=== PATIENT | male | born 1955 | race Caucasian/White ===

== ENCOUNTER 2022-03-27 12:17 | Inpatient (IN) | payer MEDICARE, SELFPAY ==
[2022-03-27] VITALS (9 sets, daily range): BP systolic 128–146; BP diastolic 50–73; PULSE 55–96; RESP 16–25; TEMP 37.7–37.8; O2SAT 92–96; BMI 38.6; BMI 36.9
--- NOTE | 2022-03-27 12:36 | W.ED.WEAKNES ---
HPI - Weakness General: Chief complaint: Weakness Stated complaint: FEVER/ NAUSEA/ ABDOMINAL PAIN Time Seen by Provider: 03/27/22 12:19 History of Present Illness: Associated symptoms: Denies chest pain, chills, dysuria, easy bruising, fever(s), nausea or vomiting Review of Systems Const: Denies: fever(s) or chills Eyes: Denies: change in vision ENMT: Denies: mouth pain Card: Denies: chest pain or palpitations Resp: Denies: dyspnea or non-productive cough GI: Denies: abdominal pain, nausea, vomiting or diarrhea : Denies: dysuria Musc: Denies: extremity pain Skin/Breast: Denies: rash or new lesions Neuro: Denies: weakness in extremities Psych: Reports: other (Normal mood) Pete/Lymph: Denies: easy bruising Physical Exam Const: COMMON NORMALS: alert HENMT: COMMON NORMALS: atraumatic HEAD & SCALP: atraumatic MOUTH: moist mucous membranes not abnormal Eye: COMMON NORMALS: EOMs intact bilaterally and conjunctivae normal CONJUNCTIVA: Yes conjunctivae normal Neck/C-Spine: COMMON NORMALS: full ROM and supple Resp: COMMON NORMALS: normal respiratory effort and clear to auscultation bilaterally AUSCULTATION: clear to auscultation bilaterally Cardio: COMMON NORMALS: regular rate RATE: regular rate GI: COMMON NORMALS: Soft to palpation and non-tender PALPATION: Yes Soft to palpation Extremity: COMMON NORMALS: full ROM Neuro: SENSORIUM/ORIENTATION: Yes alert MOTOR EXAM: No Abnormal motor strength present and Other motor observations present (no focal motor deficits) Psych: COMMON NORMALS: speech normal SPEECH: Yes normal speech MOOD & AFFECT: Yes euthymic mood Course Vital Signs: Vital signs: Vital Signs Temperature 100.1 F H 03/27/22 12:24 Pulse Rate 77 03/27/22 12:24 Respiratory Rate 22 H 03/27/22 12:24 Blood Pressure 137/68 03/27/22 12:24 Pulse Oximetry 92 03/27/22 12:24 Oxygen Delivery Me thod 03/27/22 12:24 Discharge Plan Discharge Condition: Stable Coding Level of Care Code ED Employer Relations Representative for g Fwd Exam Comprehensive
--- NOTE | 2022-03-27 12:46 | ED_ITS ---
HPI - General Adult General: Chief complaint: Weakness Stated complaint: FEVER/ NAUSEA/ ABDOMINAL PAIN Time Seen by Provider: 03/27/22 12:19 History of Present Illness: Patient is a 67-year-old male with no significant past medical history presenting to the emergency room with complaint of generalized weakness, chills and fatigue. Patient tells me that he has been having symptoms for the last 2 days. Patient's was sick at home with diarrhea. Patient denies any cough, sore throat, runny nose. Patient does report body aches and generalized weakness and fatigue. Patient has been unable to get up out of bed. Patient also complained of lower abdominal pain earlier. Denies any dysuria/polyuria or hematuria. Patient has no complaints of diarrhea, melena hematochezia. Patient denies any nausea or vomiting but reports decreased p.o. intake. No complaints of chest pain or shortness of breath. Onset: 2 days ago Duration:2 days Location:home Severity:moderate Associated symptoms: Reports malaise; Deny chest pain, dyspnea, nausea, rash, palpitations or vomiting Review of Systems Const: Reports: fever(s), chills, body aches, fatigue, malaise and other (+ Generalized weakness) Eyes: Denies: change in vision ENMT: Denies: mouth pain Card: Denies: chest pain or palpitations Resp: Denies: dyspnea or non-productive cough GI: Reports: abdominal pain (+lower abd pain) and other (+decreased po intake); Denies: nausea, vomiting or diarrhea : Denies: dysuria Musc: Denies: extremity pain Skin/Breast: Denies: rash or new lesions Neuro: Denies: weakness in extremities Psych: Reports: other (Normal mood) Pete/Lymph: Denies: easy bruising PFS ED PFSH: Medical History (Updated 04/02/22 @ 00:01 by ) Afib Cellulitis COVID Diabetes Elevated troponin Generalized weakness Iliac lymphadenopathy Intertrigo Malaise No pertinent past medical history NSTEMI (non-ST elevated myocardial infarction) Second degree AV block, Mobitz type II Surgical History (Updated 03/27/22 @ 18:08 by Kavya Cochran MD) History of open heart surgery S/P CABG x 5 Family History Other Diabetes Social History Smoking and tobacco status: never smoked Alcohol intake: never Physical Exam Const: COMMON NORMALS: alert HENMT: COMMON NORMALS: atraumatic HEAD & SCALP: atraumatic MOUTH: moist mucous membranes abnormal Eye: COMMON NORMALS: EOMs intact bilaterally and conjunctivae normal CONJUNCTIVA: Yes conjunctivae normal Neck/C-Spine: COMMON NORMALS: full ROM and supple Resp: COMMON NORMALS: normal respiratory effort and clear to auscultation bilaterally AUSCULTATION: clear to auscultation bilaterally Cardio: COMMON NORMALS: regular rate RATE: regular rate GI: COMMON NORMALS: Soft to palpation and non-tender PALPATION: Yes Soft to palpation OTHER: No focal TTP. NO guarding rebound, guarding, rigidity. No CVA tenderness to percussion. Neg Colin/Neg McBurney's point tenderness, no suprabupic tenderness to palpation. : OTHER: Normal external genitalia, Testicles non-tender b/l, no erythema. Extremity: COMMON NORMALS: full ROM Neuro: SENSORIUM/ORIENTATION: Yes alert MOTOR EXAM: No Abnormal motor strength present and Other motor observations present (no focal motor deficits) Psych: COMMON NORMALS: speech normal SPEECH: Yes normal speech MOOD & AFFECT: Yes euthymic mood Course Vital Signs: Vital signs: Vital Signs Temperature 98.0 F 04/01/22 11:23 Pulse Rate 42 L 04/01/22 11:23 Respiratory Rate 18 04/01/22 11:23 Blood Pressure 172/81 04/01/22 11:23 Pulse Oximetry 96 04/01/22 11:23 Oxygen Delivery [place] thod 04/01/22 08:00 Oxygen Flow Rate 0 03/30/22 10:37 Fraction of Inspir ed Oxygen 2 03/27/22 20:44 MDM - General Adult Medical Decision Making 67-year-old male presenting to the emergency room with nausea, malaise, generalized weakness, chills at home for the last 2 days. On exam, patient is febrile to 100.6 degrees. Patient appears to be dry. No focal abdominal tenderness to palpation. Patient requires 2 L oxygen in triage however is doing okay with oxygen in the ER. Lungs appear to be clear bilaterally. Patient is COVID-positive. Patient received Tylenol and IVF. Creatinine within normal limit. CT on pelvis showed bilateral inguinal lymph nodes. exam is unremark able. Patient has a troponin of 111 today. Patient received ASA, remdesivir, Decadron, and Lovenox. Disposition: admission Lab Data : 04/01/22 07:35 04/01/22 07:35 Radiology Impressions Abdomen/Pelvis CT 03/27/22 13:23 IMPRESSION: 1. Fatty enlarged liver. 2. Cholelithiasis. 3. Bilateral subcentimeter iliac chain lymph nodes however, they are enlarged left groin lymph nodes with surrounding inflammatory changes. Chest CTA 03/27/22 15:05 IMPRESSION: 1. Negative for pulmonary embolus. 2. Cardiomegaly. 3. Sternotomy wires. 4. Emphysematous changes. 5. Bilateral dependent atelectasis versus minimal infiltrate. 6. Coronary artery atherosclerotic calcifications. 7. Scattered prominent subcentimeter short axis mediastinal lymph nodes, nonspecific. 8. Cholelithiasis. Ankle X-Ray 03/28/22 12:45 Impression: Negative left ankle. Lower Extremity CT 03/29/22 13:39 IMPRESSION: 1. Diffuse subcutaneous edema, greatest in the region of the ankle and foot without focal fluid collection, nonspecific. 2. Calcified heel spur. 3. Scattered vascular calcifications. 4. Proximal medial collateral ligament chronic appearing calcification. Laboratory Results WBC 19.6 10^3/uL (4.0-10.0) H 03/27/22 13:04 RBC 4.85 10^6/uL (4.1-5.3) 03/27/22 13:04 Hgb 14.4 g/dL (11.7-16.6) 03/27/22 13:04 Hct 45.1 % (42.0-52.0) 03/27/22 13:04 MCV 93.0 fl (80-94) 03/27/22 13:04 MCH 29.7 pg (28.0-34.0) 03/27/22 13:04 MCHC 31.9 g/dL (30.0-36.0) 03/27/22 13:04 RDW 13.7 % (12.1-15.1) 03/27/22 13:04 Plt Count 158 10^3/cmm (130-400) 03/27/22 13:04 MPV 12.3 fL (7.4-10.4) H 03/27/22 13:04 Neut % (Auto) 89.3 % 03/27/22 13:04 Lymph % (Auto) 5.3 % 03/27/22 13:04 [place] % (Auto) 4.1 % 03/27/22 13:04 Eos % (Auto) 0.0 % 03/27/22 13:04 Baso % (Auto) 0.3 % 03/27/22 13:04 Neut # (Auto) 17.49 10^3/uL (1.8-7.7) H 03/27/22 13:04 Lymph # (Auto) 1.0 10^3/uL (0.8-4.8) 03/27/22 13:04 [place] # (Auto) 0.8 10^3/uL (0.2-0.9) 03/27/22 13:04 Eos # (Auto) 0.0 10^3/uL (0.0-0.8) 03/27/22 13:04 Baso # (Auto) 0.1 10^3/uL (0.0-0.1) 03/27/22 13:04 Nucleated RBC % (auto) 0 % 03/27/22 13:04 Nucleated RBCs # 0.0 /100WBC 03/27/22 13:04 Sodium 132 mmol/L (136-145) L 03/27/22 13:04 Potassium 3.8 mmol/L (3.5-5.1) 03/27/22 13:04 Chloride 95 mmol/L (98-107) L 03/27/22 13:04 Carbon Dioxide 20 mmol/L (22-29) L 03/27/22 13:04 Anion Gap 20.8 (5-19) H 03/27/22 13:04 BUN 13 mg/dL (8-23) 03/27/22 13:04 Creatinine 1.1 mg/dL (0.7-1.2) 03/27/22 13:04 GFR Calculation 66.6 mL/min (90-130) L 03/27/22 13:04 Glucose 260 mg/dL (65-115) H 03/27/22 13:04 Estimat Average Glucose 229 03/27/22 13:04 Hemoglobin A1c 9.6 % (4.0-6.0) H 03/27/22 13:04 Calculated Osmolality 283 mOsm/kg (285-295) L 03/27/22 13:04 Calcium 8.6 mg/dL (8.5-10.5) 03/27/22 13:04 Total Bilirubin 0.8 mg/dL (0.15-1.2) 03/27/22 13:04 AST 25 U/L (0-40) 03/27/22 13:04 ALT 18 U/L (0-41) 03/27/22 13:04 Alkaline Phosphatase 56 U/L (40-130) 03/27/22 13:04 Troponin T Baseline 111 ng/L (0-15) H* 03/27/22 13:04 Troponin T 120 Minute 101.3 ng/L (0-15) H 03/27/22 14:43 Delta Troponin T -9.7 ABS# (0-10) L 03/27/22 14:43 Total Protein 7.1 g/dL (6.6-8.7) 03/27/22 13:04 Albumin 3.2 g/dL (3.5-5.2) L 03/27/22 13:04 Globulin 3.9 g/dL (1.3-4.6) 03/27/22 13:04 Lipase 13 U/L (13-60) 03/27/22 13:04 Tumor Marker AFP 0.9 ng/mL (0-8.3) 03/27/22 13:04 Prostate Specific Ag 0.775 ng/mL (0-4) 03/27/22 13:04 Procalcitonin 2.39 ng/mL (0-0.5) H 03/27/22 13:04 Nasal Influ A H1 2009 PCR Not detected (NOT DETECT) 03/27/22 13:10 Coronavirus 229E (PCR) Not detected (NOT DETECT) 03/27/22 13:10 Influenza A (H1) PCR Not detected (NOT DETECT) 03/27/22 13:10 Influenza A (H3) PCR Not detected (NOT DETECT) 03/27/22 13:10 Influenza Type A (PCR) Not detected (NOT DETECT) 03/27/22 13:10 Influenza Type B (PCR) Not detected (NOT DETECT) 03/27/22 13:10 SARS-CoV-2 (PCR) Detected (NOT DETECT) A 03/27/22 13:10 Imaging Data Other Imaging: Radiologist's impression: [address] [place] [address] CT Scan Report Signed Patient: Jorge A Pond Unit #: [id number] : 1955 Age/Sex: 67 / M ADM Date: 03/27/22 Loc: ER Room/Bed: Attending Dr: Ordering Provider/Ordering MD: Mary Ellen Herzog MD Date of Service: 03/27/22 Procedure(s): CT abdomen pelvis w con* [id number] Accession Number(s): [id number] Report Number: [id number] PROCEDURE INFORMATION: Exam: CT Abdomen And Pelvis With Contrast Exam date and time: 03/27/2022 2:07 PM Age: 67 years old Clinical indication: Abdominal pain; Additional info: Lower abd pain TECHNIQUE: Imaging protocol: Computed tomography of the abdomen and pelvis with contrast. Contrast material: OMNI 350; Contrast volume: 80 ml; Contrast route: INTRAVENOUS (IV);? COMPARISON: No relevant prior studies available. RADIATION DOSE METRICS: Total DLP (mGy-cm): 1243.03 FINDINGS: Lungs: Mild atelectasis seen involving both lung bases. Liver: Moderately fatty enlarged liver 215 mm. Gallbladder and bile ducts: Cholelithiasis. Pancreas: Normal. No ductal dilation. Spleen: Normal. No splenomegaly. Adrenal glands: Normal. No mass. Kidneys and ureters: Normal. No hydronephrosis. Stomach and bowel: No obstruction. No mucosal thickening.? Scattered diverticula. No evidence of acute diverticulitis. Appendix: Unremarkable visualized right lower quadrant appendix. Intraperitoneal space: Unremarkable. No free air. No significant fluid collection. Vasculature: Vascular calcifications. Lymph nodes: Nonenlarged iliac chain lymph nodes are identified bilaterally. Urinary bladder: Unremarkable as visualized. Reproductive: Unremarkable as visualized. Bones/joints: Unremarkable. No acute fracture. Soft tissues: Inflammatory changes in the left groin with numerous lymph nodes. Some of these lymph nodes are enlarged over 13 mm of unknown etiology.? Surgical clips in the left groin questionably from a prior hernia repair which needs clinical correlation. CT/CT abdomen pelvis w con* [id number] IMPRESSION: 1. Fatty enlarged liver. 2. Cholelithiasis. 3. Bilateral subcentimeter iliac chain lymph nodes however, they are enlarged left groin lymph nodes with surrounding inflammatory changes. ? Dictated By: Vin Tucker MD Signed By: Vin Tucker MD Signed Date/Time: 03/27/22 1439 DD/ 1407 Discharge Plan Discharge Patient Disposition: Home Clinical Impression: Generalized weakness, Malaise, COVID, Elevated troponin Condition: Stable Discharge Orders: Discharge Order (Routine); Ordered 04/01/22 Ordered By: Kavya Cochran Discharge Diet: Advance as tolerated Discharge Activity: Increase activity as tolerated Coding Level of Care Code ED Belt And Link Assembly Supervisor for Chg Fwd Exam Comprehensive
[2022-03-27] MEDS: acetaminophen 500 mg Tablet 1000 MG PO (13:03)
[2022-03-27] MEDS: sodium chloride 0.9% 1,000 ML 999 ML IV ×2 (13:03→14:49)
[2022-03-27 13:19] LABS: Basophils # 0.1 10^3/uL (0.0-0.1); Basophils % 0.3 %; Hematocrit 45.1 % (42.0-52.0); Hemoglobin 14.4 g/dL (11.7-16.6); Lymphocytes % 5.3 %; Mean Corpuscular HGB Conc 31.9 g/dL (30.0-36.0); Mean Corpuscular Hemoglobin 29.7 pg (28.0-34.0); Mean Platelet Volume 12.3 fL (7.4-10.4); Monocytes # 0.8 10^3/uL (0.2-0.9); Monocytes % 4.1 %; Neutrophils # 17.49 10^3/uL (1.8-7.7); Neutrophils % 89.3 %; Nucleated Red Blood Cells % 0 %; Platelet Count 158 10^3/cmm (130-400); Red Blood Count 4.85 10^6/uL (4.1-5.3); Red Cell Distribution Width 13.7 % (12.1-15.1); White Blood Count 19.6 10^3/uL (4.0-10.0)
--- NOTE | 2022-03-27 13:23 | CTR_ITS ---
PROCEDURE INFORMATION: Exam: CT Abdomen And Pelvis With Contrast Exam date and time: 03/27/2022 2:07 PM Age: 67 years old Clinical indication: Abdominal pain; Additional info: Lower abd pain TECHNIQUE: Imaging protocol: Computed tomography of the abdomen and pelvis with contrast. Contrast material: OMNI 350; Contrast volume: 80 ml; Contrast route: INTRAVENOUS (IV); COMPARISON: No relevant prior studies available. RADIATION DOSE METRICS: Total DLP (mGy-cm): 1243.03 FINDINGS: Lungs: Mild atelectasis seen involving both lung bases. Liver: Moderately fatty enlarged liver 215 mm. Gallbladder and bile ducts: Cholelithiasis. Pancreas: Normal. No ductal dilation. Spleen: Normal. No splenomegaly. Adrenal glands: Normal. No mass. Kidneys and ureters: Normal. No hydronephrosis. Stomach and bowel: No obstruction. No mucosal thickening. Scattered diverticula. No evidence of acute diverticulitis. Appendix: Unremarkable visualized right lower quadrant appendix. Intraperitoneal space: Unremarkable. No free air. No significant fluid collection. Vasculature: Vascular calcifications. Lymph nodes: Nonenlarged iliac chain lymph nodes are identified bilaterally. Urinary bladder: Unremarkable as visualized. Reproductive: Unremarkable as visualized. Bones/joints: Unremarkable. No acute fracture. Soft tissues: Inflammatory changes in the left groin with numerous lymph nodes. Some of these lymph nodes are enlarged over 13 mm of unknown etiology. Surgical clips in the left groin questionably from a prior hernia repair which needs clinical correlation. CT/CT abdomen pelvis w con* [id number] IMPRESSION: 1. Fatty enlarged liver. 2. Cholelithiasis. 3. Bilateral subcentimeter iliac chain lymph nodes however, they are enlarged left groin lymph nodes with surrounding inflammatory changes.
--- NOTE | 2022-03-27 13:29 | ECG_ITS ---
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 Measurements Intervals [place] Rate: 74 P: 47 PA: 185 QRS: -64 QRSD: 157 T: 258 QT: 392 QTc: 437 Interpretive Statements SINUS RHYTHM RIGHT BUNDLE BRANCH BLOCK [120+ ms QRS DURATION, UPRIGHT V1, 40+ ms S IN I/aVL/V4/V5/V6] LEFT ANTERIOR FASCICULAR BLOCK [QRS AXIS <= -45, QR IN I, RS IN II] MODERATE T-WAVE ABNORMALITY, CONSIDER LATERAL ISCHEMIA [-0.1+ mV T-WAVE IN I/aVL/V5/V6] MODERATE T-WAVE ABNORMALITY, CONSIDER INFERIOR ISCHEMIA [-0.1+ mV T-WAVE IN II/aVF] No previous ECG available for comparison Electronically Signed On 03-27-2022 22:44:33 CDT by Tracy Fields M.D. [id number]
[2022-03-27 13:39] LABS: Alanine Aminotransferase 18 U/L (0-41); Albumin Level 3.2 g/dL (3.5-5.2); Alkaline Phosphatase 56 U/L (40-130); Anion Gap 20.8 (5-19); Aspartate Amino Transferase 25 U/L (0-40); Blood Urea Nitrogen 13 mg/dL (8-23); Calcium 8.6 mg/dL (8.5-10.5); Carbon Dioxide 20 mmol/L (22-29); Chloride 95 mmol/L (98-107); Globulin 3.9 g/dL (1.3-4.6); Glomerular Filtration Rate 66.6 mL/min (90-130); Glucose 260 mg/dL (65-115); Lipase 13 U/L (13-60); Osmolality Calculated 283 mOsm/kg (285-295); Potassium 3.8 mmol/L (3.5-5.1); Sodium 132 mmol/L (136-145); Total Bilirubin 0.8 mg/dL (0.15-1.2); Total Protein 7.1 g/dL (6.6-8.7)
[2022-03-27 13:56] LABS: Troponin(5th) Baseline 111 ng/L (0-15)
[2022-03-27] MEDS: iohexol 350 mg/mL 100 mL Btl IV ×2 (14:10→15:26)
--- NOTE | 2022-03-27 14:11 | PC.PHAR ---
pt had medications with him. pt states he takes Metformin 500mg prn withh 1000mg if blood sugar tests high
[2022-03-27] MEDS: aspirin 325 mg Tablet PO (14:28)
[2022-03-27 15:00] LABS: Adenovirus Not Detected (NOT DETECT); Chlamydia Pneumoniae Not Detected (NOT DETECT); Coronavirus 229E,HKU1,NL63,OC4 Not Detected (NOT DETECT); Human Metapneumovirus Not Detected (NOT DETECT); Human Rhinovirus/Enterovirus Not Detected (NOT DETECT); Influenza A Not Detected (NOT DETECT); Influenza A H1 Not Detected (NOT DETECT); Influenza A H1-2009 Not Detected (NOT DETECT); Influenza A H3 Not Detected (NOT DETECT); Influenza B Not Detected (NOT DETECT); Mycoplasma Pneumoniae Not Detected (NOT DETECT); Parainfluenza Virus Type 1 Not Detected (NOT DETECT); Parainfluenza Virus Type 2 Not Detected (NOT DETECT); Parainfluenza Virus Type 3 Not Detected (NOT DETECT); Parainfluenza Virus Type 4 Not Detected (NOT DETECT); Respiratory Syncytial Virus A Not Detected (NOT DETECT); Respiratory Syncytial Virus B Not Detected (NOT DETECT); SARS-COV-2 Detected (NOT DETECT)
--- NOTE | 2022-03-27 15:05 | CTR_ITS ---
PROCEDURE INFORMATION: Exam: CTA Chest With Contrast Exam date and time: 03/27/2022 3:22 PM Age: 67 years old Clinical indication: Abnormal findings; Abnormal diagnostic tests; Other: Troponin elevation; Prior surgery; Surgery type: Bypass; Additional info: Covid, troponin elevation TECHNIQUE: Imaging protocol: Computed tomographic angiography of the chest with contrast. 3D rendering (Not supervised by radiologist): MIP and/or 3D reconstructed images were created by the technologist. Radiation optimization: All CT scans at this facility use at least one of these dose optimization techniques: automated exposure control; mA and/or kV adjustment per patient size (includes targeted exams where dose is matched to clinical indication); or iterative reconstruction. Contrast material: OMNI 350; Contrast volume: 95 ml; Contrast route: INTRAVENOUS (IV); COMPARISON: CT abdomen pelvis w con* [id number] 03/27/2022 2:07 PM RADIATION DOSE METRICS: Total DLP (mGy-cm): 536.17 FINDINGS: Pulmonary arteries: Normal. No pulmonary emboli. Aorta: Unremarkable. No aortic aneurysm. No aortic dissection. Lungs: Emphysematous changes. Bilateral dependent atelectasis versus minimal infiltrate. Pleural spaces: Unremarkable. No pneumothorax. No pleural effusion. Heart: Cardiomegaly. Coronary artery atherosclerotic calcifications. Lymph nodes: Scattered prominent subcentimeter short axis mediastinal lymph nodes. Gallbladder and bile ducts: Cholelithiasis. Bones/joints: Sternotomy wires. Soft tissues: Unremarkable. CT/CT angio chest PE protcl [id number] IMPRESSION: 1. Negative for pulmonary embolus. 2. Cardiomegaly. 3. Sternotomy wires. 4. Emphysematous changes. 5. Bilateral dependent atelectasis versus minimal infiltrate. 6. Coronary artery atherosclerotic calcifications. 7. Scattered prominent subcentimeter short axis mediastinal lymph nodes, nonspecific. 8. Cholelithiasis.
[2022-03-27 15:19] LABS: Troponin 5 2HR 101.3 ng/L (0-15); Troponin 5 2HR Delta -9.7 ABS# (0-10)
[2022-03-27 15:21] LABS: Influenza A Not Detected (NOT DETECT); Influenza A H1 Not Detected (NOT DETECT); Influenza A H1-2009 Not Detected (NOT DETECT); Influenza A H3 Not Detected (NOT DETECT); Influenza B Not Detected (NOT DETECT); Results from Genmark
--- NOTE | 2022-03-27 15:26 | P.HP_ITS ---
Providers/Chief Complaint Chief Complaint: FEVER/ NAUSEA/ ABDOMINAL PAIN History of Present Illness Jorge A Pond is a 67 year old male who has hx of afib, non insulin dependent DM, coming for CC of Genralized weakness. His is sick and experiencing diarrhea for last few days. Mr Pond is feeling extremly lethargic and weak. Patient is stating that his symptoms started just 2 days ago with generalized fatigue and fever. He has not noticed any chest pain, diarrhea however he is endorsing nausea. No recent syncopal events. He is vaccinated for COVID-19. In the ER he is requiring 2 L of oxygen Low-grade fever He has been given loading dose of remdesivir and Decadron Review of Systems Const: Reports: fever(s) and chills Eyes: Denies: change in vision ENMT: Denies: throat pain Card: Denies: chest pain Resp: Reports: dyspnea GI: Reports: nausea; Denies: abdominal pain : Denies: flank pain Musc: Denies: neck pain Skin/Breast: Denies: rash Neuro: Denies: headache(s) Psych: Reports: anxiety Endo: Denies: polyuria Pete/Lymph: Denies: easy bruising All/Imm: Denies: urticaria Medications/Allergies Home Medications Medication Instructions Recorded Confirmed Last Taken Type acetaminophen 325 mg capsule 325 mg PO QID PRN Pain 03/27/22 03/27/22 Unknown History (Tylenol) acetaminophen 500 mg tablet 500 mg PO Q6H PRN pain 5 days #20 03/27/22 Unknown Rx tabs albuterol sulfate 90 mcg/actuation 2 puff inhalation 6XD PRN 03/27/22 03/27/22 03/27/22 History aerosol inhaler Shortness Of Breath apixaban 5 mg tablet (Eliquis) 2.5 mg PO BID 03/27/22 03/27/22 03/27/22 History atorvastatin 20 mg tablet 20 mg PO BEDTIME 03/27/22 03/27/22 03/27/22 History carvedilol 25 mg tablet 25 mg PO BID 03/27/22 03/27/22 03/27/22 History glipizide 5 mg tablet 5 mg PO BID 03/27/22 03/27/22 03/27/22 History lisinopril 30 mg tablet 30 mg PO DAILY 08/03/27/22 03/27/22 History metformin 1,000 mg tablet 1,000 mg PO BID 03/27/22 03/27/22 03/27/22 History metformin 500 mg tablet 500 mg PO DAILY PRN Hypoglycemia 03/27/22 03/27/22 Unknown History Allergies Allergy/AdvReac Type Severity Reaction Status Date / Time No Known Allergies Allergy Verified 03/27/22 14:10 PFSH Acute PFSH: Medical History (Updated 03/27/22 @ 18:08 by Kavya Cochran MD) Afib Diabetes No pertinent past medical history Surgical History (Updated 03/27/22 @ 18:08 by Kavya Cochran MD) History of open heart surgery S/P CABG x 5 Family History Other Diabetes Social History Smoking and tobacco status: never smoked Alcohol intake: never Substance/Drug Use: never Vitals/I&O/Wt Last Vital Signs Temp 99.8 F H 03/27/22 14:51 Pulse 68 03/27/22 14:51 Resp 20 H 03/27/22 14:51 BP 136/64 03/27/22 14:51 Pulse Ox 92 03/27/22 14:51 O2 Del Method 03/27/22 14:51 O2 Flow Rate 2 03/27/22 14:51 03/27/22 03/27/22 03/27/22 06:59 14:59 22:59 Intake Total 1000 / 1000 Balance 1000 / 1000 Weight last 48 hrs Weight 129.274 kg Physical Exam Narrative: pleasant male on 2 L NC No chest pain EOMI PERRLA ABD soft non tender No skin findings S1S2 euovolemic Groin with intertrigo No signs of Selma's gangrene or nonpurulent cellulitis Data : 03/27/22 13:04 03/27/22 13:04 A&P Assessment and plan (1) Generalized weakness: Status: Acute (2) Malaise: Status: Acute (3) COVID: Status: Acute (4) Elevated troponin: Status: Acute (5) Iliac lymphadenopathy: Status: Acute Plan COVID 19 acute hypoxia R/o PE CTA chest Star decadron and remdesevir On 2L NC Resp to asses and treat Duoneb Myocarditis? Troponin elevation on therapeutic lovenox now cheheck Echo no active chest pain Dimer Intertrigo of groin Nystatin powder CABG x5 2-1/2 years ago No active chest pain Significant troponin leak Start NSTEMI protocol We will follow-up with echo to see wall motion abnormality Full dose Lovenox Hold Eliquis A. 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
[2022-03-27] MEDS: remdesivir 200 MG in sodium chloride 0.9% (100 ml) 60 ML 100 MG IV (15:55)
[2022-03-27] MEDS: dexamethasone 10 mg/mL INJ 6 MG IVP (16:00)
[2022-03-27] MEDS: enoxaparin 120 mg/0.8 mL Syringe SUBCUT (16:00)
--- NOTE | 2022-03-27 16:04 | ECG_ITS ---
[facility] Test Date: 2022-03-27 Pat Name: Jorge A Pond Department: Room: Gender: Male Agency Sales Representative: : 1955 Requested By: Mary Ellen Herzog Order Number: [id number] Olya MD: Tracy Fields M.D. Measurements Intervals [place] Rate: 55 P: 40 [place]: 206 QRS: -57 QRSD: 165 T: -83 QT: 505 QTc: 487 Interpretive Statements SINUS BRADYCARDIA RIGHT BUNDLE BRANCH BLOCK [120+ ms QRS DURATION, UPRIGHT V1, 40+ ms S IN I/aVL/V4/V5/V6] LEFT ANTERIOR FASCICULAR BLOCK [QRS AXIS <= -45, QR IN I, RS IN II] MODERATE T-WAVE ABNORMALITY, CONSIDER LATERAL ISCHEMIA [-0.1+ mV T-WAVE IN I/aVL/V5/V6] MODERATE T-WAVE ABNORMALITY, CONSIDER INFERIOR ISCHEMIA [-0.1+ mV T-WAVE IN II/aVF] Compared to ECG 03/27/2022 13:29:25 Sinus rhythm no longer present T-wave abnormality still present Possible ischemia still present Electronically Signed On 03-27-2022 22:56:44 CDT by Tracy Fields M.D. [id number]
[2022-03-27 16:10] LABS: Prostate Specific Antigen 0.775 ng/mL (0-4)
[2022-03-27 16:26] LABS: Estmated Average Glucose 229; Hemoglobin A1C 9.6 % (4.0-6.0)
--- NOTE | 2022-03-27 17:55 | PC.NURSE ---
Report called to [facility]
--- NOTE | 2022-03-27 18:01 | PC.NURSE ---
Patients son, [place], updated on plan of care via phone
--- NOTE | 2022-03-27 18:35 | USCV_ITS ---
Jorge A Pond Age: 67 Gender: M : 1955 Exam Date: 03/27/2022 19:41 Ordering Phys: Kavya Cochran MD Technologist: SERGEI Exam Location: [facility] – [place] Indication: COVID isolation. Hypoxia. History of BLE DVT s/p CABG 2017 HISTORY: COVID isolation. Hypoxia. History of BLE DVT s/p CABG 2017 PROCEDURES: Venous duplex imaging was performed in bilateral lower extremities. The venous duplex Doppler examination of both lower extremities was performed in the standard fashion. The following venous structures were evaluated: common femoral vein, profunda vein, proximal portion of the greater saphenous vein, superficial femoral vein, and the popliteal vein. In addition, the posterior tibial veins were evaluated. Serial compression, augmentation maneuvers, and spectral Doppler flow evaluation were performed, which were normal. Bilaterally, the common femoral, superficial femoral, profunda femoral, popliteal, posterior tibial, and greater saphenous veins were identified and interrogated in the standard fashion. These veins were found to be easily compressible with spontaneous blood flow. No evidence of thrombus noted. CONCLUSIONS No evidence of right lower extremity DVT. No evidence of left lower extremity DVT. Turner Garcia MD (Electronically Signed) Final Date: 28 March 2022 11:15 S
[2022-03-27] MEDS: carvedilol 25 mg Tablet PO (20:09)
[2022-03-27] MEDS: insulin glargine 100 units/1 mL 20 UNIT SUBCUT (20:10)
[2022-03-27 21:18] LABS: Glucose Point of Care 368 mg/dL (70-110)
[2022-03-27 21:28] LABS: Procalcitonin 2.39 ng/mL (0-0.5); Tumor Marker Alpha Fetoprotein 0.9 ng/mL (0-8.3)
[2022-03-28 05:09] LABS: ABG PCO2 35.6 mmHg (35-45); Blood Gas Allen Test Pos; Blood Gas Sample Site Radial, right; Blood Gas Sample Type Arterial
[2022-03-28 05:43] LABS: Basophils % 0.1 %; Hematocrit 40.7 % (42.0-52.0); Hemoglobin 13.5 g/dL (11.7-16.6); Lymphocytes # 1.2 10^3/uL (0.8-4.8); Lymphocytes % 6.1 %; Mean Corpuscular HGB Conc 33.2 g/dL (30.0-36.0); Mean Corpuscular Hemoglobin 30.5 pg (28.0-34.0); Mean Corpuscular Volume 91.9 fl (80-94); Monocytes # 0.7 10^3/uL (0.2-0.9); Monocytes % 3.5 %; Neutrophils # 17.13 10^3/uL (1.8-7.7); Neutrophils % 89.3 %; Nucleated Red Blood Cells % 0 %; Platelet Count 114 10^3/cmm (130-400); Red Blood Count 4.43 10^6/uL (4.1-5.3); Red Cell Distribution Width 13.9 % (12.1-15.1); White Blood Count 19.2 10^3/uL (4.0-10.0)
[2022-03-28 06:48] LABS: Glucose Point of Care 280 mg/dL (70-110)
--- NOTE | 2022-03-28 06:49 | PM.PN ---
Subjective Subjective: Currently on 2 L nasal cannula Febrile events noted overnight High inflammatory markers Hyperglycemia Fatigued and tired No signs of DVT or PE Patient is complaining of pain in his left ankle He thinks interventional radiology technologist did not scan all the way down I have asked RN to touch base with the interventional radiology technologist Vitals/I&O/Wt Last Vital Signs Temp 99.8 F H 03/27/22 14:51 Pulse 68 03/27/22 20:44 Resp 16 03/27/22 20:44 BP 128/54 03/27/22 18:00 Pulse Ox 95 03/27/22 20:45 O2 Del Method 03/27/22 20:45 O2 Flow Rate 2 03/27/22 20:45 FiO2 2 03/27/22 20:44 03/27/22 03/27/22 03/28/22 14:59 22:59 06:59 Intake Total 1000 / 1000 1340 / 2340 240 / 2580 Balance 1000 / 1000 1340 / 2340 240 / 2580 Weight last 48 hrs Weight 123.513 kg Weight 129.274 kg Physical Exam Narrative: Pleasant elderly male Clinically looks euvolemic Currently on 2 L Awake and alert Nonfocal neuro exam Abdomen soft No signs of edema No sign of cellulitis Fatigued and lethargic Data : 03/28/22 05:13 03/28/22 09:00 A&P Assessment and plan (1) Intertrigo: Status: Acute (2) Iliac lymphadenopathy: Status: Acute (3) Generalized weakness: Status: Acute (4) Malaise: Status: Acute (5) COVID: Status: Acute (6) Elevated troponin: Status: Acute (7) NSTEMI (non-ST elevated myocardial infarction): Status: Acute Plan COVID-19 Acute hypoxia NSTEMI Generalized fatigue Oxygen requirement has not worsened Continue Decadron and remdesivir For hyperglycemia titrate up Lantus Hemoglobin A1c is 9 Significant troponin leakage patient has history of bypass x5 2-1/2 years ago, no active chest pain, will follow-up with echo report to see any wall motion abnormality Continue therapeutic Lovenox for now new signs of PE Rule out myocarditis Blood pressure is stable Patient is full code A. fib without RVR Continue therapeutic anticoagulating regimen Will obtain ankle x-ray Attestations Medical Necessity Statement*: Continue COVID-19 management Time Spent in Patient Care: 30 Coding Level of Care Code Acute Nursing Surgical Services Director for Chg Fwd Diagnoses Intertrigo L30.4 Iliac lymphadenopathy R59.0 Generalized weakness R53.1 Malaise R53.81 COVID U07.1 Elevated troponin R77.8 NSTEMI (non-ST elevated myocardial infarction) I21.4
[2022-03-28] MEDS: insulin lispro 100 unit/1 mL SUBCUT ×3 (07:57→17:44)
[2022-03-28] MEDS: enoxaparin 120 mg/0.8 mL Syringe SUBCUT ×2 (07:57→19:50)
[2022-03-28 08:00] VITALS: PULSE 67; RESP 16; O2SAT 94
[2022-03-28] MEDS: dexamethasone 4 mg Tablet 6 MG PO (08:03)
[2022-03-28] MEDS: zinc gluconate 50 mg Tablet PO (08:03)
[2022-03-28] MEDS: carvedilol 25 mg Tablet PO ×2 (08:03→17:43)
[2022-03-28] MEDS: ascorbic acid 500 mg Tablet PO (08:03)
[2022-03-28] MEDS: aspirin 81 mg EC Tablet PO (08:03)
[2022-03-28] MEDS: lisinopril 10 mg Tablet 30 MG PO (08:03)
[2022-03-28] MEDS: clopidogrel 75 mg Tablet PO (08:03)
[2022-03-28] MEDS: atorvastatin 40 mg Tablet PO (08:04)
[2022-03-28] MEDS: cefTRIAXone 1,000 MG in sodium chloride 0.9% (plus) 50 ML 100 MG IV (08:04)
[2022-03-28 10:12] LABS: Blood Urea Nitrogen 18 mg/dL (8-23); C Reactive Protein 337.7 mg/L (0.0-4.9); Calcium 8.6 mg/dL (8.5-10.5); Carbon Dioxide 23 mmol/L (22-29); Chloride 100 mmol/L (98-107); Ferritin 679 ng/mL (30-400); Glomerular Filtration Rate 96.1 mL/min (90-130); Glucose 243 mg/dL (65-115); Magnesium 1.4 mg/dL (1.7-2.3); Osmolality Calculated 294 mOsm/kg (285-295); Sodium 137 mmol/L (136-145)
[2022-03-28 10:14] LABS: Anion Gap 18.3 (5-19); Potassium 4.3 mmol/L (3.5-5.1); Procalcitonin 1.82 ng/mL (0-0.5)
[2022-03-28 11:26] LABS: Glucose Point of Care 286 mg/dL (70-110)
--- NOTE | 2022-03-28 12:45 | XR_ITS ---
WS: [id number] Left ankle, AP and lateral views, 03/28/2022 Clinical Data: pain Comparison: None. Findings: No fractures or dislocations are seen. The ankle mortise is normal. The talus and calcaneus are unrem arkable. No soft tissue swelling over the medial or lateral malleolus is seen. There is a plantar and an Achilles spur. . There is minimal vascular calcification. XR/XR ankle LT 2V [id number] Impression: Negative left ankle.
[2022-03-28 13:40] LABS: Urine Color Yellow (Yellow)
[2022-03-28 13:41] LABS: Add Urine Microscopic? YES; Bilirubin Urine Neg (Negative); Blood Urine Neg (Negative); Glucose Urine UA 4+ (Normal); Ketones Urine Negative (Negative); Leukocyte Esterase Urine Negative (Negative); Nitrate Urine Negative (Negative); Protein Urine 1+ (Negative); Urine Appearance Clear (CLEAR); Urobilinogen Urine 1 mg/dL (Negative); pH Urine 5 (5-7)
[2022-03-28 13:46] LABS: Add Urine Culture? No
[2022-03-28 13:51] LABS: ABG PH Result 7.43 (7.35-7.45); Arterial Blood Gas Hematocrit 39.1 % (42-52); Base Excess ABG -0.2 mmol/L (-2.0-2.0); Blood Gas Operator Identificat WALCI; HCO3 ABG 23.7 mmol/L (22-26); PO2 ABG 63.7 mmHg (80.0-100.0)
[2022-03-28 14:49] LABS: Glucose Point of Care 401 mg/dL (70-110)
[2022-03-28 15:37] VITALS: PULSE 71; RESP 16; O2SAT 94
[2022-03-28] MEDS: insulin lispro 100 unit/1 mL 15 UNIT SUBCUT (15:40)
[2022-03-28] MEDS: insulin glargine 100 units/1 mL 25 UNIT SUBCUT (15:40)
[2022-03-28 17:41] LABS: Glucose Point of Care 275 mg/dL (70-110)
[2022-03-28] MEDS: magnesium oxide 400 mg tablet PO (17:43)
[2022-03-28] MEDS: remdesivir 100 MG in sodium chloride 0.9% (100 ml) 100 ML IV (17:43)
[2022-03-28] MEDS: insulin glargine 100 units/1 mL 15 UNIT SUBCUT (17:44)
[2022-03-28 20:42] VITALS: PULSE 74; RESP 16; O2SAT 95
[2022-03-28 21:12] LABS: Glucose Point of Care 220 mg/dL (70-110)
[2022-03-28 21:46] VITALS: BP 118/62; PULSE 61; RESP 19; TEMP 37.2; O2SAT 95
[2022-03-29] VITALS: BP 142/60; PULSE 61; RESP 17; TEMP 37.3; O2SAT 92
[2022-03-29 04:00] VITALS: BP 146/67; PULSE 50; RESP 19; TEMP 37.3; O2SAT 95
[2022-03-29 04:34] LABS: ABG PCO2 33.2 mmHg (35-45); ABG PH Result 7.49 (7.35-7.45); Arterial Blood Gas Hematocrit 37.9 % (42-52); Base Excess ABG 2.1 mmol/L (-2.0-2.0); Blood Gas Allen Test Pos; Blood Gas Sample Type Arterial; HCO3 ABG 25.1 mmol/L (22-26); PO2 ABG 66.8 mmHg (80.0-100.0)
[2022-03-29 04:37] LABS: Blood Gas Sample Site Radial, left; Oxygen Device NC
[2022-03-29] MEDS: enoxaparin 120 mg/0.8 mL Syringe SUBCUT ×2 (06:06→18:12)
[2022-03-29 06:09] LABS: Glucose Point of Care 204 mg/dL (70-110)
[2022-03-29 06:19] LABS: Basophils % 0.1 %; Eosinophils % 0.1 %; Hematocrit 37.6 % (42.0-52.0); Hemoglobin 11.6 g/dL (11.7-16.6); Lymphocytes % 5.5 %; Mean Corpuscular HGB Conc 30.9 g/dL (30.0-36.0); Mean Corpuscular Hemoglobin 29.7 pg (28.0-34.0); Mean Corpuscular Volume 96.4 fl (80-94); Monocytes # 0.7 10^3/uL (0.2-0.9); Monocytes % 3.7 %; Neutrophils # 16.01 10^3/uL (1.8-7.7); Neutrophils % 86.4 %; Nucleated Red Blood Cells % 0 %; Platelet Count 128 10^3/cmm (130-400); Red Cell Distribution Width 13.9 % (12.1-15.1); White Blood Count 18.5 10^3/uL (4.0-10.0)
[2022-03-29 06:42] LABS: Blood Urea Nitrogen 19 mg/dL (8-23); Carbon Dioxide 23 mmol/L (22-29); Chloride 100 mmol/L (98-107); Glomerular Filtration Rate 112.1 mL/min (90-130); Glucose 179 mg/dL (65-115); Osmolality Calculated 283 mOsm/kg (285-295); Sodium 133 mmol/L (136-145)
[2022-03-29 06:59] LABS: Anion Gap 14.2 (5-19); Potassium 4.2 mmol/L (3.5-5.1)
[2022-03-29 08:00] VITALS: BP 157/70; PULSE 53; PULSE 68; RESP 16; TEMP 36.8; O2SAT 93; O2SAT 94
[2022-03-29] MEDS: acetaminophen 500 mg Tablet PO (09:14)
[2022-03-29] MEDS: insulin lispro 100 unit/1 mL SUBCUT ×5 (09:16→21:06)
[2022-03-29] MEDS: cefTRIAXone 1,000 MG in sodium chloride 0.9% (plus) 50 ML 100 MG IV (09:16)
[2022-03-29] MEDS: clopidogrel 75 mg Tablet PO (09:17)
[2022-03-29] MEDS: magnesium oxide 400 mg tablet PO ×2 (09:17→18:04)
[2022-03-29] MEDS: carvedilol 25 mg Tablet PO ×2 (09:17→18:04)
[2022-03-29] MEDS: zinc gluconate 50 mg Tablet PO (09:17)
[2022-03-29] MEDS: aspirin 81 mg EC Tablet PO (09:17)
[2022-03-29] MEDS: lisinopril 10 mg Tablet 30 MG PO (09:17)
[2022-03-29] MEDS: atorvastatin 40 mg Tablet PO (09:17)
[2022-03-29] MEDS: ascorbic acid 500 mg Tablet PO (09:17)
[2022-03-29] MEDS: insulin glargine 100 units/1 mL 25 UNIT SUBCUT (09:22)
[2022-03-29 11:34] LABS: Glucose Point of Care 509 mg/dL (70-110)
[2022-03-29 12:00] VITALS: BP 146/63; PULSE 63; RESP 16; TEMP 36.6; O2SAT 95
[2022-03-29] MEDS: FUROsemide 20 mg Tablet PO (12:23)
[2022-03-29] MEDS: ketorolac 30 mg/mL INJ 15 MG IVP (12:23)
[2022-03-29 12:36] LABS: Uric Acid 4.4 mg/dL (3.4-7.0)
--- NOTE | 2022-03-29 13:34 | PM.PN ---
Subjective Subjective: Patient is doing well on room air Couple of episode of loose stools yesterday Complaining of left ankle pain Call x-ray unremarkable No DVT We will give him anti-inflammatory pain meds along Lasix Check uric acid Hyperglycemia, uptitrated his insulin Vitals/I&O/Wt Last Vital Signs Temp 97.8 F 03/29/22 12:00 Pulse 63 03/29/22 12:00 Resp 16 03/29/22 12:00 BP 146/63 03/29/22 12:00 Pulse Ox 95 03/29/22 12:00 O2 Del Method 03/29/22 12:00 O2 Flow Rate 2 03/28/22 20:00 FiO2 2 03/27/22 20:44 03/28/22 03/29/22 03/29/22 22:59 06:59 14:59 Intake Total 340 / 1370 200 / 1570 410 / 410 Output Total 500 / 650 300 / 950 Balance -160 / 720 -100 / 620 410 / 410 Weight last 48 hrs Weight 123.785 kg Weight 123.513 kg Physical Exam Narrative: Patient is laying supine Currently on room air No audible stridor or wheezing No active chest pain Abdomen soft Left ankle has swelling, warm to touch however no erythema Patient is not able to bear weight on his left ankle for now Nonfocal neuro exam Currently on room air Data : 03/29/22 05:28 03/29/22 05:28 Micro: Microbiology 03/27/22 19:35 MRSA Culture - Final Nose A&P Assessment and plan (1) NSTEMI (non-ST elevated myocardial infarction): Status: Acute (2) Intertrigo: Status: Acute (3) Iliac lymphadenopathy: Status: Acute (4) Generalized weakness: Status: Acute (5) Cellulitis: Status: Acute (6) Malaise: Status: Acute (7) COVID: Status: Acute Plan NSTEMI No active chest pain Echo did not show unremarkable wall motion abnormality Significant troponin leak History of CABG x5 Currently on therapeutic Lovenox We will switch him to his home regimen of Eliquis COVID-19 Hypoxia improved Currently on room air Will do home O2 evaluation before discharge Discontinue Decadron continue remdesivir Hyperglycemia, type 2 diabetes hemoglobin A1c above 8 Uptitrate his insulin regimen, high intensity scale Left ankle pain No signs of fracture Nonpurulent cellulitis Would use doxycycline and Keflex for now No signs of purulence Inguinal lymphadenopathy present on admission Interitgo groin Continue antifungal powder Full code Consistent carb diet Discharge tomorrow if stable Attestations Medical Necessity Statement*: Discharge tomorrow if stable Time Spent in Patient Care: 30 Coding Level of Care Code Acute Career Development Counselor for g Fwd Diagnoses NSTEMI (non-ST elevated myocardial infarction) I21.4 Intertrigo L30.4 Iliac lymphadenopathy R59.0 Generalized weakness R53.1 Cellulitis L03.90 Malaise R53.81 COVID U07.1
--- NOTE | 2022-03-29 13:39 | CTR_ITS ---
PROCEDURE INFORMATION: Exam: CT Left Lower Extremity Without Contrast; Lower Leg Exam date and time: 03/29/2022 5:04 PM Age: 67 years old Clinical indication: Cellulitis and edema; Location not specified; Lower leg; Left TECHNIQUE: Imaging protocol: CT of the Left lower extremity without contrast was performed. Exam focused on the lower leg. Radiation optimization: All CT scans at this facility use at least one of these dose optimization techniques: automated exposure control; mA and/or kV adjustment per patient size (includes targeted exams where dose is matched to clinical indication); or iterative reconstruction. COMPARISON: CR XR ankle LT 2V [id number] 03/28/2022 1:01 PM RADIATION DOSE METRICS: Total DLP (mGy-cm): 380.95 FINDINGS: Bones/joints: Calcified heel spur. Proximal medial collateral ligament chronic appearing calcification. Soft tissues: Diffuse subcutaneous edema, greatest in the region of the ankle and foot without focal fluid collection, nonspecific. Vasculature: Scattered vascular calcifications. CT/CT lower leg LT wo con* [id number] IMPRESSION: 1. Diffuse subcutaneous edema, greatest in the region of the ankle and foot without focal fluid collection, nonspecific. 2. Calcified heel spur. 3. Scattered vascular calcifications. 4. Proximal medial collateral ligament chronic appearing calcification.
[2022-03-29] MEDS: doxycycline 100 mg Tablet PO ×2 (13:46→18:02)
[2022-03-29] MEDS: cephALEXin 500 mg Capsule PO ×2 (14:05→21:05)
[2022-03-29 15:43] LABS: Erythrocyte Sedimentation Rate 55 mm/hr (0-10)
[2022-03-29 16:00] VITALS: BP 154/73; PULSE 55; RESP 16; TEMP 36.4; O2SAT 96
[2022-03-29 16:58] LABS: Glucose Point of Care 270 mg/dL (70-110)
[2022-03-29] MEDS: remdesivir 100 MG in sodium chloride 0.9% (100 ml) 100 ML IV (17:59)
[2022-03-29] MEDS: insulin glargine 100 units/1 mL 27 UNIT SUBCUT (18:00)
[2022-03-29] MEDS: nystatin powder 15 gm Btl 1 APPLIC TOPICAL (18:00)
[2022-03-29 20:00] VITALS: BP 155/70; PULSE 45; PULSE 72; RESP 16; RESP 18; TEMP 36.6; O2SAT 96; O2SAT 98
[2022-03-29 21:08] LABS: Glucose Point of Care 205 mg/dL (70-110)
[2022-03-30] VITALS (13 sets, daily range): BP systolic 138–169; BP diastolic 64–75; PULSE 37–86; RESP 16–20; TEMP 36.4–36.7; O2SAT 94–97
[2022-03-30] MEDS: acetaminophen 500 mg Tablet PO ×3 (05:47→21:26)
[2022-03-30] MEDS: enoxaparin 120 mg/0.8 mL Syringe SUBCUT ×2 (05:52→18:07)
[2022-03-30 06:00] LABS: Basophils % 0.2 %; Eosinophils % 0.1 %; Hematocrit 34.2 % (42.0-52.0); Hemoglobin 11.2 g/dL (11.7-16.6); Lymphocytes # 1.8 10^3/uL (0.8-4.8); Mean Corpuscular HGB Conc 32.7 g/dL (30.0-36.0); Mean Corpuscular Hemoglobin 29.8 pg (28.0-34.0); Monocytes # 0.7 10^3/uL (0.2-0.9); Monocytes % 4.2 %; Neutrophils # 13.54 10^3/uL (1.8-7.7); Neutrophils % 83.6 %; Nucleated Red Blood Cells % 0 %; Platelet Count 146 10^3/cmm (130-400); Red Blood Count 3.76 10^6/uL (4.1-5.3); Red Cell Distribution Width 13.8 % (12.1-15.1); White Blood Count 16.2 10^3/uL (4.0-10.0)
[2022-03-30 06:01] LABS: Glucose Point of Care 145 mg/dL (70-110)
[2022-03-30 06:20] LABS: Anion Gap 12.6 (5-19); Blood Urea Nitrogen 20 mg/dL (8-23); Calcium 8.2 mg/dL (8.5-10.5); Carbon Dioxide 24 mmol/L (22-29); Chloride 103 mmol/L (98-107); Glucose 153 mg/dL (65-115); Osmolality Calculated 288 mOsm/kg (285-295); Potassium 3.6 mmol/L (3.5-5.1); Sodium 136 mmol/L (136-145)
[2022-03-30] MEDS: insulin lispro 100 unit/1 mL SUBCUT ×5 (09:18→18:02)
[2022-03-30] MEDS: magnesium oxide 400 mg tablet PO ×2 (09:19→17:06)
[2022-03-30] MEDS: aspirin 81 mg EC Tablet PO (09:19)
[2022-03-30] MEDS: clopidogrel 75 mg Tablet PO (09:19)
[2022-03-30] MEDS: atorvastatin 40 mg Tablet PO (09:19)
[2022-03-30] MEDS: doxycycline 100 mg Tablet PO ×2 (09:19→17:06)
[2022-03-30] MEDS: cephALEXin 500 mg Capsule PO ×3 (09:19→21:24)
[2022-03-30] MEDS: insulin glargine 100 units/1 mL 27 UNIT SUBCUT (09:19)
[2022-03-30] MEDS: carvedilol 25 mg Tablet PO (09:19)
[2022-03-30] MEDS: zinc gluconate 50 mg Tablet PO (09:20)
[2022-03-30] MEDS: lisinopril 10 mg Tablet 30 MG PO (09:20)
[2022-03-30] MEDS: ascorbic acid 500 mg Tablet PO (09:20)
[2022-03-30] MEDS: nystatin powder 15 gm Btl 1 APPLIC TOPICAL ×2 (09:20→18:02)
--- NOTE | 2022-03-30 10:12 | PC.SOCIAL ---
IMM update. Copy of page 2 provided to patient at bedside. Patient verbalized understanding and had no questions. Page 2 initialed, dated and timed, copy placed in chart.
[2022-03-30 11:24] LABS: Glucose Point of Care 219 mg/dL (70-110)
--- NOTE | 2022-03-30 11:56 | ECG_ITS ---
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 Measurements Intervals [place] Rate: 37 P: GA: QRS: -46 QRSD: 168 T: -33 QT: 540 QTc: 425 Interpretive Statements SINUS BRADYCARDIA RIGHT BUNDLE BRANCH BLOCK [120+ ms QRS DURATION, UPRIGHT V1, 40+ ms S IN I/aVL/V4/V5/V6] LEFT ANTERIOR FASCICULAR BLOCK [QRS AXIS <= -45, QR IN I, RS IN II] Compared to ECG 03/27/2022 16:04:10 T-wave abnormality no longer present Possible ischemia no longer present Electronically Signed On 04-01-2022 7:21:41 CDT by Melyssa Servin M.D. [id number]
--- NOTE | 2022-03-30 12:02 | PC.NURSE ---
Vitals showed pt hr from 70-30's. Pt placed on telemetry. physician notified. ekg ordered. Physician notified of result of mobitz type II. Patient remains asymptomatic.
--- NOTE | 2022-03-30 12:11 | USCV_ITS ---
Gaines, Jorge A Age: 67 Gender: M : 1955 Exam Date: 03/30/2022 12:31 Ordering Phys: Kavya Cochran MD Technologist: Alison Agosto Exam Location: [facility] [place] Indication: Bradycardia BP: 140 / 64 HR: 37 Rhythm: Sinus Technical Quality: Adequate MEASUREMENTS (Male / Female) Normal Values 2D ECHO LV Diastolic Diameter PLAX 5.7 cm 4.2 - 5.9 / 3.9 - 5.3 cm LV Systolic Diameter PLAX 4.4 cm LV Chamber Size 5.4 cm IVS Diastolic Thickness 1.3 cm 0.6 - 1.0 / 0.6 - 0.9 cm IVS Systolic Thickness 1.5 cm LVPW Diastolic Thickness 1.3 cm 0.6 - 1.0 / 0.6 - 0.9 cm LVPW Systolic Thickness 1.7 cm RV Chamber Size 4.0 cm LVOT Diameter 2.0 cm LV Ejection Fraction 2D Teich 46.9 % LV Ejection Fraction MOD 2C 55.3 % LV Ejection Fraction 2C AL 55.4 % LA Diameter 4.9 cm LA Width 4.4 cm LA Height 5.0 cm RA Width 3.6 cm RA Height 4.6 cm Aorta at Sinotubular Diameter 4.0 cm IVC Diameter 1.8 cm M-MODE Aortic Annulus Diameter 3.7 cm LA Ao Ratio MM 1.4 MV E Point Septal Separation 1.4 cm DOPPLER AV Peak Velocity 151.0 cm/s LVOT Peak Velocity 75.0 cm/s AV Area Cont Eq vti 1.5 cm squared AV Area Cont Eq pk 1.6 cm squared MV Area PHT 3.4 cm squared Mitral E to A Ratio 2.0 MV E' Velocity 60.5 cm/s Mitral E to MV E' Ratio 17.9 Mitral E to LV E' Lateral Ratio 22.8 Mitral E to LV E' Septal Ratio 14.7 TR Peak Velocity 221.4 cm/s TR Peak Gradient 19.6 mmHg TR Mean Velocity 162.7 cm/s TR Mean Gradient 12.0 mmHg TR Velocity Time Integral 77.5 cm TV Peak E Velocity 80.0 cm/s Right Atrial Pressure 8.0 mmHg Pulmonary Artery Systolic Pressu 27.6 mmHg PV Peak Velocity 72.0 cm/s RV Acceleration Time 0.1 s RV Ejection Time 0.4 s RV AcT/ET 0.3 FINDINGS Left Ventricle Normal left ventricular cavity size. Mildly increased left ventricular wall thickness. Mildly decreased left ventricular systolic function. Left ventricular ejection fraction is estimated at 45 %. Mild global hypokinesis. Abnormal septal motion consistent with conduction abnormality. Right Ventricle Normal right ventricular size and systolic function, RVSP 27 mmHg. Right Atrium Normal right atrial size. Left Atrium Mildly increased left atrial size. Mitral Valve Structurally normal mitral valve. No mitral valve stenosis. Trace mitral valve regurgitation. Aortic Valve Structurally normal trileaflet aortic valve. No aortic valve stenosis. No aortic valve regurgitation. Tricuspid Valve Structurally normal tricuspid valve. No tricuspid valve stenosis. Trace tricuspid valve regurgitation. Pulmonic Valve Pulmonic valve not well visualized. No pulmonary valve stenosis. No pulmonary valve regurgitation. Pericardium No pericardial effusion. Aorta Normal-sized aortic root. IVC Inferior vena cava not visualized. CONCLUSIONS 1. Normal left ventricular cavity size. Mildly increased left ventricular wall thickness. Mildly decreased left ventricular systolic function. Left ventricular ejection fraction is estimated at 45 %. Mild global hypokinesis. 2. Normal right ventricular size and systolic function. 3. Pulmonary artery pressure estimated at 27 mmHg. 4. No significant valvular abnormality. 5. No prior similar studies to compare. Melyssa Servin MD (Electronically Signed) Final Date: 30 March 2022 14:02 S
[2022-03-30 13:36] LABS: Troponin T (5th) Once 85 ng/L (0-15)
[2022-03-30 13:58] LABS: Magnesium 1.8 mg/dL (1.7-2.3)
--- NOTE | 2022-03-30 14:39 | P.PN_ITS ---
Subjective Subjective: This morning patient's heart rate dipped down to low 40s, discontinued his carvedilol Will give 1 mg IV of glucagon Monitor his blood sugars Patient is not complaining of active shortness of breath or chest pain No signs of confusion or dizziness I requested echo will do stress test tomorrow morning he was diagnosed with NSTEMI received therapeutic Lovenox Vitals/I&O/Wt Last Vital Signs Temp 97.9 F 03/30/22 11:11 Pulse 37 L 03/30/22 11:55 Resp 16 03/30/22 11:11 BP 140/64 03/30/22 11:11 Pulse Ox 95 03/30/22 10:37 O2 Del Method 03/30/22 11:11 O2 Flow Rate 0 03/30/22 10:37 FiO2 2 03/27/22 20:44 03/29/22 03/30/22 03/30/22 22:59 06:59 14:59 Intake Total 340 / 990 1040 / 2030 240 / 240 Output Total 700 / 700 650 / 1350 Balance -360 / 290 390 / 680 240 / 240 Weight last 48 hrs Weight 125.872 kg Weight 123.785 kg Physical Exam Narrative: Currently on room air No active chest pain shortness of breath Second-degree AV block Hemodynamically stable Awake and alert Nonfocal neuro exam Currently on room air Left ankle swelling mild erythema no active purulence EOMI, PERRLA Data : 03/30/22 05:35 03/30/22 05:35 A&P Assessment and plan (1) Second degree AV block, Mobitz type II: Status: Acute (2) Cellulitis: Status: Acute (3) NSTEMI (non-ST elevated myocardial infarction): Status: Acute (4) Intertrigo: Status: Acute (5) Iliac lymphadenopathy: Status: Acute (6) Generalized weakness: Status: Acute (7) COVID: Status: Acute (8) Malaise: Status: Acute Plan Second-degree Mobitz type II Patient had bifascicular block which worsened with use of carvedilol Discontinue carvedilol Patient is hemodynamically stable No active chest pain or shortness of breath Patient was diagnosed with NSTEMI at the time of admission received therapeutic Lovenox along aspirin, statin, carvedilol I will do stress test on Thursday Echo N.p.o. after midnight Repeat troponin 85 Nonpurulent cellulitis left ankle Open skin wound left fifth digit No signs of purulence Continue antibiotics COVID-19 pneumonia Currently on room air Discontinue Decadron He will finish remdesivir course Patient is full code Currently on consistent carb diet Type 2 diabetes hyperglycemia poorly controlled, A1c is 9.6 I will schedule Premeal insulin Increase the dose of Lantus Patient is full code Attestations Medical Necessity Statement*: Stress test tomorrow Time Spent in Patient Care: 30 Coding Level of Care Code Acute Hard Candy Spinner for Chg Fwd Diagnoses Second degree AV block, Mobitz type II I44.1 Cellulitis L03.90 NSTEMI (non-ST elevated myocardial infarction) I21.4 Intertrigo L30.4 Iliac lymphadenopathy R59.0 Generalized weakness R53.1 COVID U07.1 Malaise R53.81
--- NOTE | 2022-03-30 15:01 | PC.NURSE ---
glucagon ordered as a one time scheduled dose. order confirmed with physician.
[2022-03-30] MEDS: insulin lispro 100 unit/1 mL 7 UNIT SUBCUT (17:06)
[2022-03-30 17:14] LABS: Glucose Point of Care 222 mg/dL (70-110)
[2022-03-30] MEDS: insulin glargine 100 units/1 mL 30 UNIT SUBCUT (18:01)
[2022-03-30] MEDS: remdesivir 100 MG in sodium chloride 0.9% (100 ml) 100 ML IV (18:02)
[2022-03-30 21:26] LABS: Glucose Point of Care 127 mg/dL (70-110)
[2022-03-31] VITALS (10 sets, daily range): BP systolic 150–191; BP diastolic 48–71; PULSE 33–53; RESP 16–18; TEMP 36.3–36.9; O2SAT 94–97
[2022-03-31 04:08] LABS: Glucose Point of Care 73 mg/dL (70-110)
[2022-03-31] MEDS: enoxaparin 120 mg/0.8 mL Syringe SUBCUT ×2 (06:25→18:08)
[2022-03-31 06:28] LABS: Basophils % 0.2 %; Eosinophils # 0.1 10^3/uL (0.0-0.8); Hematocrit 36.6 % (42.0-52.0); Lymphocytes # 2.8 10^3/uL (0.8-4.8); Lymphocytes % 21.6 %; Mean Corpuscular HGB Conc 32.8 g/dL (30.0-36.0); Mean Corpuscular Hemoglobin 30.1 pg (28.0-34.0); Mean Corpuscular Volume 91.7 fl (80-94); Mean Platelet Volume 12.5 fL (7.4-10.4); Monocytes # 0.8 10^3/uL (0.2-0.9); Monocytes % 6.5 %; Neutrophils # 8.95 10^3/uL (1.8-7.7); Neutrophils % 70.2 %; Nucleated Red Blood Cells % 0 %; Platelet Count 177 10^3/cmm (130-400); Red Blood Count 3.99 10^6/uL (4.1-5.3); Red Cell Distribution Width 14.2 % (12.1-15.1); White Blood Count 12.8 10^3/uL (4.0-10.0)
[2022-03-31 06:46] LABS: Glucose Point of Care 75 mg/dL (70-110)
[2022-03-31 06:59] LABS: Blood Urea Nitrogen 16 mg/dL (8-23); Calcium 8.2 mg/dL (8.5-10.5); Carbon Dioxide 24 mmol/L (22-29); Chloride 106 mmol/L (98-107); Glucose 67 mg/dL (65-115); Osmolality Calculated 289 mOsm/kg (285-295); Sodium 140 mmol/L (136-145)
[2022-03-31 07:22] LABS: Anion Gap 13.6 (5-19); Potassium 3.6 mmol/L (3.5-5.1)
[2022-03-31] MEDS: ascorbic acid 500 mg Tablet PO (09:20)
[2022-03-31] MEDS: doxycycline 100 mg Tablet PO (09:20)
[2022-03-31] MEDS: zinc gluconate 50 mg Tablet PO (09:20)
[2022-03-31] MEDS: magnesium oxide 400 mg tablet PO ×2 (09:20→18:10)
[2022-03-31] MEDS: cephALEXin 500 mg Capsule PO (09:20)
[2022-03-31] MEDS: clopidogrel 75 mg Tablet PO (09:20)
[2022-03-31] MEDS: aspirin 81 mg EC Tablet PO (09:21)
[2022-03-31] MEDS: lisinopril 10 mg Tablet 30 MG PO (09:21)
[2022-03-31] MEDS: atorvastatin 40 mg Tablet PO (09:21)
--- NOTE | 2022-03-31 09:22 | USCV_ITS ---
Jorge A Pond Age: 67 Gender: M : 1955 Exam Date: 03/31/2022 13:06 Ordering Phys: Kavya Cochran MD Technologist: Elijah Adame [place] [facility] [place]: bilat edema PROCEDURES: The venous duplex Doppler examination of both lower extremities was performed in the standard fashion. The following venous structures were evaluated: common femoral vein, profunda vein, proximal portion of the greater saphenous vein, superficial femoral vein, and the popliteal vein. FINDINGS: Normal 2-D Doppler and augmentation and compressibility throughout the lower extremity venous structures. Additional imaging through the proximal calf veins also reveals no thrombus. Limited evaluation of the greater saphenous vein is patent with no thrombus. CONCLUSIONS No DVT bilateral lower extremities. Dr. Laurie Cotto DO (Electronically Signed) Final Date: 31 March 2022 14:39 S
[2022-03-31 12:02] LABS: Glucose Point of Care 133 mg/dL (70-110)
--- NOTE | 2022-03-31 12:39 | PM.PN ---
Subjective Subjective: This morning patient is on room air Saturating well Hypertensive No active chest pain shortness of breath confusion Erythema and redness has worsened of left ankle I have requested another DVT ultrasound Change antibiotics to IV Vanco and Zosyn Monitor heart rate for now No need of pacemaker, discussed with cardiology He was on high dose of Coreg it will take some time to reverse effect Patient is stating that he had similar complaint when his leg was infected last time and his heart rate improved after a while, he has been taking AV michel blocking agent for last 2-1/2 years since his CABG Vitals/I&O/Wt Last Vital Signs Temp 97.4 F L 03/31/22 08:00 Pulse 43 L 03/31/22 12:00 Resp 16 03/31/22 12:00 BP 178/69 03/31/22 12:00 Pulse Ox 97 03/31/22 12:00 O2 Del Method 03/31/22 12:00 O2 Flow Rate 0 03/30/22 10:37 FiO2 2 03/27/22 20:44 03/30/22 03/31/22 03/31/22 22:59 06:59 14:59 Intake Total 220 / 700 Output Total 550 / 1100 550 / 1650 250 / 250 Balance -330 / -400 -550 / -950 -250 / -250 Weight last 48 hrs Weight 125.872 kg Physical Exam Narrative: Patient is sitting comfortably in his recliner Left ankle looks more swollen and red No significant purulence or skin opening Hypertensive Bradycardic Awake and alert Currently on room air Looks euvolemic Pleasant and cooperative Data : 03/31/22 06:20 03/31/22 06:20 A&P Assessment and plan (1) Second degree AV block, Mobitz type II: Status: Acute (2) Cellulitis: Status: Acute (3) NSTEMI (non-ST elevated myocardial infarction): Status: Acute (4) Intertrigo: Status: Acute (5) Iliac lymphadenopathy: Status: Acute (6) Generalized weakness: Status: Acute (7) Malaise: Status: Acute (8) COVID: Status: Acute (9) Elevated troponin: Status: Acute Plan Second-degree AV block, AV michel blockade to discontinue Monitor for now Noted the pacemaker for now Hemodynamically stable No active symptoms COVID-19 pneumonia, not on isolation anymore, currently on room air Finished remdesivir, remdesivir can also cause bradycardia Type 2 diabetes hyperglycemia he is getting scheduled insulin along Lantus Hypertensive: Continue lisinopril 30 mg daily, avoid amlodipine, optimize antiplatelet regimen, add hydralazine Left ankle nonpurulent cellulitis, erythema and swelling has worsened We will give him 1 dose of Lasix, escalate his antibiotics Inguinal lymphadenopathy Groin intertrigo No signs of Selma's gangrene Patient is full code Consistent carb diet Currently on Lovenox therapeutic regimen at home he was taking Eliquis for his A. fib NSTEMI Patient has been getting aspirin, Plavix, therapeutic Lovenox Case discussed with Dr. Underwood,, no plan for angiogram No active chest pain Echo showed preserved ejection fraction Global hypokinesia Attestations Medical Necessity Statement*: Continue medical management Time Spent in Patient Care: 30 Coding Level of Care Code Acute Superintendent Service for [facility] Fwd Diagnoses Second degree AV block, Mobitz type II I44.1 Cellulitis L03.90 NSTEMI (non-ST elevated myocardial infarction) I21.4 Intertrigo L30.4 Iliac lymphadenopathy R59.0 Generalized weakness R53.1 Malaise R53.81 COVID U07.1 Elevated troponin R77.8
[2022-03-31] MEDS: potassium chloride ER 20 mEq Tablet 40 MEQ PO (14:22)
[2022-03-31] MEDS: FUROsemide 20 mg Tablet PO (14:23)
[2022-03-31] MEDS: vancomycin 1,250 MG/250 ML PIGGYBACK 250 MG IV ×2 (14:36→21:42)
[2022-03-31] MEDS: hyDRALAzine 10 mg Tablet PO ×2 (16:26→20:19)
[2022-03-31] MEDS: piperacillin-tazobactam 3.375 GM in sodium chloride 0.9% (plus) 50 ML IV ×2 (16:27→22:42)
[2022-03-31 17:06] LABS: Glucose Point of Care 207 mg/dL (70-110)
[2022-03-31] MEDS: nystatin powder 15 gm Btl 1 APPLIC TOPICAL (18:08)
[2022-03-31] MEDS: insulin lispro 100 unit/1 mL 7 UNIT SUBCUT (18:09)
[2022-03-31] MEDS: insulin glargine 100 units/1 mL 30 UNIT SUBCUT (18:10)
--- NOTE | 2022-03-31 18:33 | ECG_ITS ---
[facility] Test Date: 2022-03-31 Pat Name: Jorge A Pond Department: Room: 270 Gender: Male Wedger: : 1955 Requested By: Kavya Cochran Order Number: [id number] Olya MD: Melyssa Servin M.D. Measurements Intervals [place] Rate: 52 P: 36 WV: 161 QRS: -56 QRSD: 152 T: -24 QT: 470 QTc: 439 Interpretive Statements SINUS BRADYCARDIA RIGHT BUNDLE BRANCH BLOCK [120+ ms QRS DURATION, UPRIGHT V1, 40+ ms S IN I/aVL/V4/V5/V6] LEFT ANTERIOR FASCICULAR BLOCK [QRS AXIS <= -45, QR IN I, RS IN II] Compared to ECG 03/30/2022 11:56:54 No significant changes Electronically Signed On 04-01-2022 7:28:03 CDT by Melyssa Servin M.D. [email or web address]
[2022-03-31] MEDS: ketorolac 30 mg/mL INJ 15 MG IVP (20:19)
[2022-03-31] MEDS: insulin lispro 100 unit/1 mL SUBCUT (21:51)
[2022-03-31 21:52] LABS: Glucose Point of Care 180 mg/dL (70-110)
[2022-04-01] VITALS (7 sets, daily range): BP systolic 139–173; BP diastolic 60–90; PULSE 39–97; RESP 14–20; TEMP 36.6–36.8; O2SAT 91–96
[2022-04-01] MEDS: vancomycin 1,250 MG/250 ML PIGGYBACK 250 MG IV (04:51)
[2022-04-01] MEDS: piperacillin-tazobactam 3.375 GM in sodium chloride 0.9% (plus) 50 ML IV (06:05)
[2022-04-01] MEDS: acetaminophen 500 mg Tablet PO (06:07)
[2022-04-01] MEDS: enoxaparin 120 mg/0.8 mL Syringe SUBCUT (06:12)
[2022-04-01 07:53] LABS: Basophils % 0.4 %; Eosinophils # 0.3 10^3/uL (0.0-0.8); Eosinophils % 3.2 %; Hematocrit 39.1 % (42.0-52.0); Hemoglobin 12.6 g/dL (11.7-16.6); Lymphocytes # 2.9 10^3/uL (0.8-4.8); Lymphocytes % 31.1 %; Mean Corpuscular HGB Conc 32.2 g/dL (30.0-36.0); Mean Corpuscular Hemoglobin 29.9 pg (28.0-34.0); Mean Corpuscular Volume 92.9 fl (80-94); Monocytes # 0.8 10^3/uL (0.2-0.9); Monocytes % 8.1 %; Neutrophils # 5.21 10^3/uL (1.8-7.7); Neutrophils % 56.4 %; Nucleated Red Blood Cells % 0 %; Platelet Count 202 10^3/cmm (130-400); Red Blood Count 4.21 10^6/uL (4.1-5.3); Red Cell Distribution Width 14.3 % (12.1-15.1); White Blood Count 9.2 10^3/uL (4.0-10.0)
[2022-04-01 08:10] LABS: Alanine Aminotransferase 17 U/L (0-41); Albumin Level 2.5 g/dL (3.5-5.2); Alkaline Phosphatase 53 U/L (40-130); Anion Gap 14.8 (5-19); Aspartate Amino Transferase 14 U/L (0-40); Blood Urea Nitrogen 18 mg/dL (8-23); C Reactive Protein 85.9 mg/L (0.0-4.9); Calcium 7.9 mg/dL (8.5-10.5); Carbon Dioxide 24 mmol/L (22-29); Chloride 105 mmol/L (98-107); Globulin 2.8 g/dL (1.3-4.6); Glomerular Filtration Rate 112.1 mL/min (90-130); Glucose 76 mg/dL (65-115); Magnesium 1.7 mg/dL (1.7-2.3); Osmolality Calculated 291 mOsm/kg (285-295); Potassium 3.8 mmol/L (3.5-5.1); Sodium 140 mmol/L (136-145); Total Bilirubin 0.4 mg/dL (0.15-1.2); Total Protein 5.3 g/dL (6.6-8.7)
--- NOTE | 2022-04-01 08:54 | P.CONIM_ITS ---
Providers/Reason For Consult Consulting Physician/Specialty*: Horacio Underwood MD/ Cardiology Reason for Consult*: Bradycardia Requesting Physician: Dr Cochran Attending Physician: Kavya Cochran MD History of Present Illness History of Present Illness Jorge A Pond is a 67 year old male with past medical history of atrial fibrillation on Eliquis, history of CAD with prior CABG presented to the hospital with hypoxia and shortness of breath and was found to have a COVID 19. He was found to have cellulitis of left lower extremity. Patient had bradycardic episodes. Telemetry shows first-degree AV block. Is asymptomatic and does not complain of syncope or presyncope. Initial troponin was 111 trended down. EKG shows sinus rhythm with first-degree AV block and right bundle branch block. Echo shows mildly reduced LV systolic function. Review of Systems Const: Reports: fever(s) and chills Eyes: Denies: change in vision ENMT: Denies: throat pain Card: Denies: chest pain Resp: Reports: dyspnea GI: Reports: nausea; Denies: abdominal pain : Denies: flank pain Musc: Denies: neck pain Skin/Breast: Denies: rash Neuro: Denies: headache(s) Psych: Reports: anxiety Endo: Denies: polyuria Pete/Lymph: Denies: easy bruising All/Imm: Denies: urticaria Medications/Allergies Home Medications Medication Instructions Recorded Confirmed Last Taken Type acetaminophen 325 mg capsule 325 mg PO QID PRN Pain 03/27/22 03/27/22 Unknown History (Tylenol) albuterol sulfate 90 mcg/actuation 2 puff inhalation 6XD PRN 03/27/22 03/27/22 03/27/22 History aerosol inhaler Shortness Of Breath atorvastatin 20 mg tablet 20 mg PO BEDTIME 03/27/22 03/27/22 03/27/22 History glipizide 5 mg tablet 5 mg PO BID 03/27/22 03/27/22 03/27/22 History metformin 1,000 mg tablet 1,000 mg PO BID 03/27/22 03/27/22 03/27/22 History metformin 500 mg tablet 500 mg PO DAILY PRN Hypoglycemia 03/27/22 03/27/22 Unknown History amoxicillin 875 mg-potassium 1 tab PO BID #20 tabs 04/01/22 Unknown Rx clavulanate 125 mg tablet apixaban 5 mg tablet (Eliquis) 5 mg PO BID #60 tabs 04/01/22 03/27/22 03/27/22 Rx chlorthalidone 25 mg tablet 25 mg PO TID #90 tabs 04/01/22 Unknown Rx hydralazine 10 mg tablet 10 mg PO TID #90 tabs 04/01/22 Unknown Rx insulin glargine 100 unit/mL 30 unit (0.3 mL) SUBCUT BID #10 mL 04/01/22 Unknown Rx subcutaneous solution isosorbide dinitrate 5 mg tablet 5 mg PO BID #60 tabs 04/01/22 Unknown Rx lisinopril 20 mg tablet 40 mg PO DAILY #90 tabs 04/01/22 Unknown Rx Allergies Allergy/AdvReac Type Severity Reaction Status Date / Time No Known Allergies Allergy Verified 03/27/22 14:10 Current Medications Generic Name Dose Route Start Last Admin Trade Name Freq PRN Reason Stop Dose Admin Acetaminophen 500 mg 03/27/22 18:35 04/01/22 06:07 Acetaminophen 500 Mg Tablet PO 500 mg Q4H PRN Administration fever Ascorbic Acid 500 mg 03/28/22 09:00 03/31/22 09:20 Ascorbic Acid 500 Mg Tablet PO 500 mg DAILY DAINA Administration Aspirin 81 mg 03/28/22 09:00 03/31/22 09:21 Aspirin 81 Mg Ec Tablet PO 81 mg DAILY DAINA Administration Atorvastatin Calcium 40 mg 03/28/22 09:00 03/31/22 09:21 Atorvastatin 40 Mg Tablet PO 40 mg DAILY DAINA Administration Enoxaparin Sodium 120 mg 03/28/22 07:15 04/01/22 06:12 Enoxaparin 120 Mg/0.8 Ml Syringe SUBCUT 120 mg Q12H DAINA Administration Hydralazine HCl 10 mg 03/31/22 15:00 03/31/22 20:19 Hydralazine 10 Mg Tablet PO 10 mg TID DAINA Administration Vancomycin/PEG/NADA/Lysine/Water 1,250 mg in 250 mls @ 250 mls/hr 03/31/22 13:30 04/01/22 06:12 Vancocin IV Infused Q8H DAINA Infusion Piperacillin Sod/Tazobactam 50 mls @ 12.5 mls/hr 03/31/22 15:00 04/01/22 06:05 Sod 3.375 gm/ Sodium Chloride IV 12.5 mls/hr Q8H DAINA Administration Insulin Glargine 30 unit 03/30/22 18:00 03/31/22 18:10 Insulin Glargine 100 Units/1 Ml SUBCUT 30 unit BID DAINA Administration Insulin Human Lispro 0 unit 03/29/22 18:00 04/01/22 08:11 Insulin Lispro 100 Unit/1 Ml SUBCUT Not Given WM&BEDTIME DAINA Protocol Insulin Human Lispro 7 unit 03/30/22 17:00 04/01/22 07:49 Insulin Lispro 100 Unit/1 Ml SUBCUT Not Given AC DAINA Ketorolac Tromethamine 15 mg 03/31/22 10:11 03/31/22 20:19 Ketorolac 30 Mg/Ml Inj IVP 04/05/22 10:10 15 mg ONCE PRN Administration MODERATE PAIN Magnesium Oxide 400 mg 03/28/22 18:00 03/31/22 18:10 Magnesium Oxide 400 Mg Tablet PO 400 mg BID DAINA Administration Nystatin 1 applic 03/29/22 18:00 03/31/22 18:08 Nystatin Powder 15 Gm Btl TOPICAL 1 applic BID DAINA Administration Zinc Gluconate 50 mg 03/28/22 09:00 03/31/22 09:20 Zinc Gluconate 50 Mg Tablet PO 50 mg DAILY DAINA Administration PFSH Acute PFSH: Medical History (Updated 04/11/22 @ 13:14 by Horacio Underwood M.D) Afib Cellulitis COVID Diabetes Elevated troponin Generalized weakness Iliac lymphadenopathy Intertrigo Malaise No pertinent past medical history NSTEMI (non-ST elevated myocardial infarction) Second degree AV block, Mobitz type II Surgical History History of open heart surgery S/P CABG x 5 Family History Other Diabetes Social History Smoking and tobacco status: never smoked Alcohol intake: never Vitals/I&O/Wt Last Vital Signs Temp 98.1 F 04/01/22 07:23 Pulse 49 L 04/01/22 08:00 Resp 18 04/01/22 08:00 BP 173/90 04/01/22 07:23 Pulse Ox 96 04/01/22 08:00 O2 Del Method 04/01/22 08:00 O2 Flow Rate 0 03/30/22 10:37 FiO2 2 03/27/22 20:44 03/31/22 04/01/22 04/01/22 22:59 06:59 14:59 Intake Total 970 / 1210 300 / 1510 Output Total 2100 / 2350 500 / 2850 Balance -1130 / -1140 -200 / -1340 Physical Exam Narrative: GENERAL: Patient is alert, awake and oriented x3. [] NECK: No jugular vein distension. [] HEENT: No cyanosis. No icterus. No pallor. [] HEART: Regular S1 and S2. No murmur, rub or gallop. [] LUNGS: Clear to auscultate bilaterally. [] CENTRAL NERVOUS SYSTEM: Grossly nonfocal. [] EXTREMITIES: Lower extremities with no edema bilaterally. Pulses palpable in the lower extremities, both dorsalis pedis and posterior tibial. [] Data : 04/01/22 07:35 04/01/22 07:35 A&P Assessment and plan (1) Afib: Status: Acute (2) Diabetes: Status: Acute (3) Elevated troponin: Status: Acute (4) CAD (coronary artery disease): Status: Acute Plan Patient is overall stable from cardiac standpoint. He has bradycardia however no significant pauses. We will recommend event monitor as outpatient. Troponin elevation likely from demand ischemia Continue current medications. Avoid rate controlling medications. Outpatient cardiology follow-up. Thank you for involving us with care of this patient. 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
[2022-04-01] MEDS: insulin glargine 100 units/1 mL 30 UNIT SUBCUT (09:52)
[2022-04-01] MEDS: magnesium oxide 400 mg tablet PO (09:53)
[2022-04-01] MEDS: hyDRALAzine 10 mg Tablet PO (09:53)
[2022-04-01] MEDS: zinc gluconate 50 mg Tablet PO (09:53)
[2022-04-01] MEDS: atorvastatin 40 mg Tablet PO (09:53)
[2022-04-01] MEDS: lisinopril 20 mg Tablet 40 MG PO (09:53)
[2022-04-01] MEDS: ascorbic acid 500 mg Tablet PO (09:53)
[2022-04-01] MEDS: nystatin powder 15 gm Btl 1 APPLIC TOPICAL (09:54)
[2022-04-01] MEDS: aspirin 81 mg EC Tablet PO (09:54)
[2022-04-01] MEDS: ketorolac 30 mg/mL INJ IVP (09:57)
[2022-04-01] MEDS: oxyCODONE-APAP 5-325 mg Tablet 1 TAB PO (09:57)
--- NOTE | 2022-04-01 11:01 | P.DS_ITS ---
Discharge Providers Date of Admission: 03/27/22 15:06 Date of Discharge: April 01, 2022 Attending Provider at Admission: Kavya Cochran MD Attending Provider at Discharge: Kavya Cochran MD Diagnoses at Discharge Discharge Diagnosis (1) Second degree AV block, Mobitz type II: Status: Acute (2) Cellulitis: Status: Acute (3) NSTEMI (non-ST elevated myocardial infarction): Status: Acute (4) Intertrigo: Status: Acute (5) Iliac lymphadenopathy: Status: Acute (6) Generalized weakness: Status: Acute (7) Malaise: Status: Acute (8) COVID: Status: Acute (9) Elevated troponin: Status: Acute Reason for Visit Reason for Visit: FEVER/ NAUSEA/ ABDOMINAL PAIN Hospital Course Hospital Course [id number] male who carries history of A. fib, takes Eliquis and Coreg at home, history of CABG 2-1/2 years ago, takes lisinopril for hypertension presented for hypoxia and shortness of breath, he was diagnosed with COVID-19, he was treated with Decadron and remdesivir, no signs of sepsis or febrile events, we were able to successfully wean him off to room air, during his hospitalization he was diagnosed with nonpurulent cellulitis of left ankle, no signs of gout, no signs of abscess or necrotizing fasciitis, he was treated with IV antibiotics, erythema and swelling improved, uric acid below 6, please note that during his hospitalization he was also diagnosed with bradycardia, repeat EKG showed sinus bradycardia with intermittent type II block however in last 48 hours he has remained in first-degree AV block, I did discuss this case with Dr. Underwood who recommended discharge on event monitor for now discontinue AV michel blocking agent. Patient is stating that with his last infection he had bradycardic episodes as well which improved once infection resolves. He was treated with therapeutic Lovenox at the time of admission because of his significant troponin leak however he was not complaining of any chest pain Echo did not show significant wall motion abnormality, 45% ejection fraction, global hypokinesia, stress test was canceled because of his bradycardia, not a candidate of coronary angiogram,, he will be discharged on Eliquis, lisinopril, dose of lisinopril has been increased to 40 mg, added chlorthalidone, avoid amlodipine because of edema of leg. No signs of DVT of his left leg. Physical Exam 2 Narrative: Pleasant cooperative Currently on room air Sinus bradycardia first-degree AV block Awake and alert S1, S2 Currently doing well on room air Awake and alert Nonfocal neuro exam Edema of left ankle extending all the way up just 5 cm below his knee Erythema improving 2+ pitting edema Discharge Data Studies Completed and Pending Completed Studies During Hospitalization Category Date Time Status CT abdomen pelvis w con* [id number] Stat Cat Scan 03/27/22 13:[address] lower leg LT wo con* [id number] Routine Cat Scan 03/29/22 13:39 Completed CTA chest [CT angio chest PE protcl [id number]] Stat Cat Scan 03/27/22 15:05 Completed XR ankle LT 2V [id number] Routine Exams 03/28/22 12:45 [place] [id number] Routine Ultrasound 03/27/22 18:35 [place] [id number] Stat Ultrasound 03/31/22 09:22 Completed CV. echo complete* [id number] Routine Ultrasound 03/30/22 12:11 Completed Pending at discharge Category Date Time Status Sestamibi Stress Test Request Routine Exams 03/30/22 12:10 Stop Req Sestamibi Stress Test Request Routine Exams 03/31/22 06:00 Ordered Vancomycin Trough Timed Lab 04/01/22 12:30 Ordered Radiology Impressions Abdomen/Pelvis CT 03/27/22 13:23 IMPRESSION: 1. Fatty enlarged liver. 2. Cholelithiasis. 3. Bilateral subcentimeter iliac chain lymph nodes however, they are enlarged left groin lymph nodes with surrounding inflammatory changes. Chest CTA 03/27/22 15:05 IMPRESSION: 1. Negative for pulmonary embolus. 2. Cardiomegaly. 3. Sternotomy wires. 4. Emphysematous changes. 5. Bilateral dependent atelectasis versus minimal infiltrate. 6. Coronary artery atherosclerotic calcifications. 7. Scattered prominent subcentimeter short axis mediastinal lymph nodes, nonspecific. 8. Cholelithiasis. Ankle X-Ray 03/28/22 12:45 Impression: Negative left ankle. Lower Extremity CT 03/29/22 13:39 IMPRESSION: 1. Diffuse subcutaneous edema, greatest in the region of the ankle and foot without focal fluid collection, nonspecific. 2. Calcified heel spur. 3. Scattered vascular calcifications. 4. Proximal medial collateral ligament chronic appearing calcification. Laboratory Results WBC 9.2 10^3/uL (4.0-10.0) 04/01/22 07:35 Corrected WBC Cancelled 04/01/22 05:44 RBC 4.21 10^6/uL (4.1-5.3) 04/01/22 07:35 Hgb 12.6 g/dL (11.7-16.6) 04/01/22 07:35 Hct 39.1 % (42.0-52.0) L 04/01/22 07:35 MCV 92.9 fl (80-94) 04/01/22 07:35 MCH 29.9 pg (28.0-34.0) 04/01/22 07:35 MCHC 32.2 g/dL (30.0-36.0) 04/01/22 07:35 RDW 14.3 % (12.1-15.1) 04/01/22 07:35 Plt Count 202 10^3/cmm (130-400) 04/01/22 07:35 MPV 12.0 fL (7.4-10.4) H 04/01/22 07:35 Gran % Cancelled 04/01/22 05:44 Neut % (Auto) 56.4 % 04/01/22 07:35 Lymph % (Auto) 31.1 % 04/01/22 07:35 [place] % (Auto) 8.1 % 04/01/22 07:35 Eos % (Auto) 3.2 % 04/01/22 07:35 Baso % (Auto) 0.4 % 04/01/22 07:35 Neut # (Auto) 5.21 10^3/uL (1.8-7.7) 04/01/22 07:35 Lymph # (Auto) 2.9 10^3/uL (0.8-4.8) 04/01/22 07:35 [place] # (Auto) 0.8 10^3/uL (0.2-0.9) 04/01/22 07:35 Eos # (Auto) 0.3 10^3/uL (0.0-0.8) 04/01/22 07:35 Baso # (Auto) 0.0 10^3/uL (0.0-0.1) 04/01/22 07:35 Absolute Gran (auto) Cancelled 04/01/22 05:44 Nucleated RBC % (auto) 0 % 04/01/22 07:35 Nucleated RBCs # 0.0 /100WBC 04/01/22 07:35 ESR 55 mm/hr (0-10) H 03/29/22 05:28 Specimen Type Arterial 03/29/22 04:30 Sample Site Radial, left 03/29/22 04:30 ABG pH 7.49 (7.35-7.45) H 03/29/22 04:30 ABG pCO2 33.2 mmHg (35-45) L 03/29/22 04:30 ABG pO2 66.8 mmHg (80.0-100.0) L 03/29/22 04:30 ABG HCO3 25.1 mmol/L (22-26) 03/29/22 04:30 ABG Base Excess 2.1 mmol/L (-2.0-2.0) H 03/29/22 04:30 [place] Test Pos 03/29/22 04:30 Hematocrit 37.9 % (42-52) L 03/29/22 04:30 O2 Delivery Device Nc 03/29/22 04:30 O2 Liters/Min 2.0 % 03/29/22 04:30 FiO2 21.0 % 03/28/22 04:58 Medical Assistant Prn ID shust 03/29/22 04:30 Sodium 140 mmol/L (136-145) 04/01/22 07:35 Potassium 3.8 mmol/L (3.5-5.1) 04/01/22 07:35 Chloride 105 mmol/L (98-107) 04/01/22 07:35 Carbon Dioxide 24 mmol/L (22-29) 04/01/22 07:35 Anion Gap 14.8 (5-19) 04/01/22 07:35 BUN 18 mg/dL (8-23) 04/01/22 07:35 Creatinine 0.7 mg/dL (0.7-1.2) 04/01/22 07:35 GFR Calculation 112.1 mL/min (90-130) 04/01/22 07:35 Glucose 76 mg/dL (65-115) 04/01/22 07:35 POC Glucose 180 mg/dL (70-110) H 03/31/22 21:48 Estimat Average Glucose 229 03/27/22 13:04 Hemoglobin A1c 9.6 % (4.0-6.0) H 03/27/22 13:04 Calculated Osmolality 291 mOsm/kg (285-295) 04/01/22 07:35 Uric Acid 4.4 mg/dL (3.4-7.0) 03/29/22 05:28 Calcium 7.9 mg/dL (8.5-10.5) L 04/01/22 07:35 Magnesium 1.7 mg/dL (1.7-2.3) 04/01/22 07:35 Ferritin 679 ng/mL (30-400) H 03/28/22 09:00 Total Bilirubin 0.4 mg/dL (0.15-1.2) 04/01/22 07:35 AST 14 U/L (0-40) 04/01/22 07:35 ALT 17 U/L (0-41) 04/01/22 07:35 Alkaline Phosphatase 53 U/L (40-130) 04/01/22 07:35 Troponin T Gen 5 ng/L 85 ng/L (0-15) H 03/30/22 13:02 Troponin T Baseline 111 ng/L (0-15) H* 03/27/22 13:04 Troponin T 120 Minute 101.3 ng/L (0-15) H 03/27/22 14:43 Delta Troponin T -9.7 ABS# (0-10) L 03/27/22 14:43 C-Reactive Protein 85.9 mg/L (0.0-4.9) H 04/01/22 07:35 Total Protein 5.3 g/dL (6.6-8.7) L 04/01/22 07:35 Albumin 2.5 g/dL (3.5-5.2) L 04/01/22 07:35 Globulin 2.8 g/dL (1.3-4.6) 04/01/22 07:35 Lipase 13 U/L (13-60) 03/27/22 13:04 Tumor Marker AFP 0.9 ng/mL (0-8.3) 03/27/22 13:04 Prostate Specific Ag 0.775 ng/mL (0-4) 03/27/22 13:04 Procalcitonin 1.30 ng/mL (0-0.5) H 03/29/22 05:28 Urine Color Yellow (Yellow) 03/28/22 12:57 Urine Appearance Clear (CLEAR) 03/28/22 12:57 Urine pH 5 (5-7) 03/28/22 12:57 Ur Specific [place] 1.010 (1.005-1.030) 03/28/22 12:57 Urine Protein 1+ (Negative) H 03/28/22 12:57 Urine Glucose (UA) 4+ (Normal) H 03/28/22 12:57 Urine Ketones Negative (Negative) 03/28/22 12:57 Urine Blood Neg (Negative) 03/28/22 12:57 Urine Nitrate Negative (Negative) 03/28/22 12:57 Urine Bilirubin Neg (Negative) 03/28/22 12:57 Urine Urobilinogen 1 mg/dL (Negative) H 03/28/22 12:57 Ur Leukocyte Esterase Negative (Negative) 03/28/22 12:57 Urine RBC None /hpf (0-2) 03/28/22 12:57 Urine WBC None /hpf (0-5) 03/28/22 12:57 Ur Squamous Epith Cells 5-10 /hpf (0-5) H 03/28/22 12:57 Amorphous Sediment Not Reportable 03/28/22 12:57 Urine Bacteria None /hpf (NONE) 03/28/22 12:57 Nasal Influ A H1 2008 PCR Not detected (NOT DETECT) 03/27/22 13:10 Coronavirus 229E (PCR) Not detected (NOT DETECT) 03/27/22 13:10 Influenza A (H1) PCR Not detected (NOT DETECT) 03/27/22 13:10 Influenza A (H3) PCR Not detected (NOT DETECT) 03/27/22 13:10 Influenza Type A (PCR) Not detected (NOT DETECT) 03/27/22 13:10 Influenza Type B (PCR) Not detected (NOT DETECT) 03/27/22 13:10 SARS-CoV-2 (PCR) Detected (NOT DETECT) A 03/27/22 13:10 Vitals Last Vital Signs Temp 98.1 F 04/01/22 07:23 Pulse 49 L 04/01/22 08:00 Resp 20 H 04/01/22 09:57 BP 173/90 04/01/22 07:23 Pulse Ox 96 04/01/22 08:00 O2 Del Method 04/01/22 08:00 O2 Flow Rate 0 03/30/22 10:37 FiO2 2 03/27/22 20:44 Discharge Plan Discharge Patient Disposition: Home Condition: Stable Prescriptions: New acetaminophen 500 mg tablet 500 mg PO Q6H PRN (Reason: pain) 5 Days Qty: 20 0RF insulin glargine 100 unit/mL Solution 30 unit SUBCUT BID Qty: 10 4RF lisinopril 20 mg Tablet 40 mg PO DAILY Qty: 90 3RF chlorthalidone 25 mg tablet 25 mg PO TID Qty: 90 4RF isosorbide dinitrate 5 mg tablet 5 mg PO BID Qty: 60 0RF Rx Instructions: allow nitrate-free interval of 12-14 hrs per 24-hr period amoxicillin-pot clavulanate 875-125 mg tablet 1 tab PO BID Qty: 20 0RF hydralazine 10 mg Tablet 10 mg PO TID Qty: 90 2RF Continued metformin 500 mg Tablet 500 mg PO DAILY PRN (Reason: Hypoglycemia) atorvastatin 20 mg Tablet 20 mg PO BEDTIME metformin 1,000 mg Tablet 1,000 mg PO BID albuterol sulfate 90 mcg/actuation Hfa Aerosol Inhaler 2 puff INHALATION 6XD PRN (Reason: Shortness Of Breath) glipizide 5 mg Tablet 5 mg PO BID Tylenol 325 mg Capsule 325 mg PO QID PRN (Reason: Pain) Changed Eliquis 5 mg Tablet 5 mg PO BID Qty: 60 0RF Discontinued carvedilol 25 mg Tablet 25 mg PO BID Rx Instructions: must administer with a meal/food lisinopril 30 mg Tablet 30 mg PO DAILY Discharge Orders: Discharge Order (Routine); Ordered 04/01/22 Ordered By: Kavya Cochran Other Ambulatory Orders: MCT/Event Monitor 21 Days (Routine) Timeframe: 3 Weeks Facility: [facility] - Location: Radiology Ordered By: Kavya Cochran Discharge Diet: Advance as tolerated Discharge Activity: Increase activity as tolerated Patient Instructions: Opioid Safety, Weakness (Generalized) Discharge Attestations Time Spent in Discharge Care*: less than 30 min Quality Metrics Clinical Quality Measures [ No reported AMI, CVA or VTE this stay] Coding Level of Care Code Acute Chg FW DC note Diagnoses Second degree AV block, Mobitz type II I44.1 Cellulitis L03.90 NSTEMI (non-ST elevated myocardial infarction) I21.4 Intertrigo L30.4 Iliac lymphadenopathy R59.0 Generalized weakness R53.1 Malaise R53.81 COVID U07.1 Elevated troponin R77.8
[2022-04-01 11:48] LABS: Glucose Point of Care 268 mg/dL (70-110)
--- NOTE | 2022-04-01 13:51 | PC.NURSE ---
dc'd pts piv and tele. discharge instructions reviewed in detail. All new medications discussed , encouraged pt to keep log of bp and blood glucose with these changes in medications. monitor to be placed on 04/09. pt verbalized understanding of all instructions and follow up. no further questions, left via wc to private vehicle with family.
== END 2022-04-01 13:45 | disposition home or self-care (01) | DRG 177 ==
LOC: ER 15:36 → MEDSURG 17:30
PROVIDERS: Admitting Provider Internal Medicine; Emergency Provider Emergency Medicine; Visit Provider Internal Medicine
DX: U07.1 COVID-19 (principal); I21.4 Non-ST elevation (NSTEMI) myocardial infarction; J12.82 Pneumonia due to coronavirus disease 2019; L03.116 Cellulitis of left lower limb; I48.91 Unspecified atrial fibrillation; E11.65 Type 2 diabetes mellitus with hyperglycemia; I25.10 Atherosclerotic heart disease of native coronary artery without angina pectoris; Z95.1 Presence of aortocoronary bypass graft; R59.0 Localized enlarged lymph nodes; L30.4 Erythema intertrigo; I44.1 Atrioventricular block, second degree; Z79.84 Long term (current) use of oral hypoglycemic drugs; Z79.51 Long term (current) use of inhaled steroids
CPT/HCPCS: 36415; 36416; 36600; 71275; 73600; 73700; 74177; 80048; 80053; 81001; 82105; 82728; 82803; 82962; 83036; 83690; 83735; 84145; 84153; 84484; 84550; 85025; 85651; 86140; 87631; 87635; 87641; 93005; 93306; 93970; 94664; 94760; 96372; J0696; J1100; J1610; J1650; J1815; J1885; J2543; J3370; J7030; J8540; Q9967